=== PATIENT | male | born 1990 | race Caucasian/White ===

== ENCOUNTER 2020-02-18 23:14 | Emergency (ER) | payer OTHER ==
[2020-02-18 23:27] VITALS: BP 131/72; PULSE 115; RESP 16; TEMP 97.9
--- NOTE | 2020-02-19 00:31 | ED ---
Psych HPI - General Chief Complaint: Psychiatric Symptoms Stated Complaint: Mental health Time Seen by Provider: 02/18/20 23:26 Source: patient, police, RN notes reviewed, old records reviewed Mode of arrival: ambulatory - History of Present Illness Initial Comments: This is a 29-year-old male who presents today apical border patient something up or for not taking his medications and making homicidal or suicidal complaints. Patient denies drugs or alcohol today and otherwise emergency department does not feel like he needs to be MD Complaint: suicidal ideation, feels depressed, other (Per pickup order) -: unknown Associated Psychiatric Symptoms: none (Patient himself has no complaints) Context: not taking psychiatric medications Associated Symptoms: denies other symptoms Treatments Prior to Arrival: placed on mental health hold - Related Data Home Medications Medication Instructions Recorded Confirmed ARIPiprazole IM [Abilify Maintena] 200 mg IM QMONTH 06/08/14 02/26/20 Melatonin 3 mg PO HS PRN 10/24/15 02/26/20 Phentermine HCl 37.5 mg PO DAILY 02/26/20 02/26/20 Allergies Allergy/AdvReac Type Severity Reaction Status Date / Time No Known Allergies Allergy Verified 02/26/20 05:49 Review of Systems ROS Statement: Those systems with pertinent positive or pertinent negative responses have been documented in the HPI. ROS Other: All systems not noted in ROS Statement are negative. Past Medical History Past Medical History: Hypertension Additional Past Medical History / Comment(s): OCCASIONAL SOB, OCCASIONAL BLOOD IN STOOL. STATES HAVING STOMACH PAINS. History of Any Multi-Drug Resistant Organisms: None Reported Past Surgical History: No Surgical Hx Reported Additional Past Surgical History / Comment(s): TEETH PULLED Additional Past Anesthesia/Blood Transfusion Reaction / Comment(s): HAS NOT RECEIVED ANESTHESIA Past Psychological History: Anxiety, Bipolar, Depression, Panic Disorder, Schizoaffective Disorder, Schizophrenia Smoking Status: Current every day smoker Past Alcohol Use History: Daily Past Drug Use History: Marijuana - Past Family History Mother Family Medical History: No Reported History General Exam Limitations: no limitations General appearance: alert, in no apparent distress Head exam: Present: atraumatic, normocephalic, normal inspection Eye exam: Present: normal appearance, PERRL, EOMI. Absent: scleral icterus, conjunctival injection, periorbital swelling ENT exam: Present: normal exam, mucous membranes moist Neck exam: Present: normal inspection. Absent: tenderness, meningismus, lymphadenopathy Respiratory exam: Present: normal lung sounds bilaterally. Absent: respiratory distress, wheezes, rales, rhonchi, stridor Cardiovascular Exam: Present: normal rhythm, tachycardia, normal heart sounds. Absent: systolic murmur, diastolic murmur, rubs, gallop, clicks GI/Abdominal exam: Present: soft, normal bowel sounds. Absent: distended, tenderness, guarding, rebound, rigid Extremities exam: Present: normal inspection, full ROM, normal capillary refill. Absent: tenderness, pedal edema, joint swelling, calf tenderness Back exam: Present: normal inspection Neurological exam: Present: alert, oriented X3, CN II-XII intact Psychiatric exam: Present: normal affect, normal mood Skin exam: Present: warm, dry, intact, normal color. Absent: rash Course Vital Signs 02/18/20 23:25 Temperature 97.9 F Pulse Rate 115 H Respiratory 16 Rate Blood Pressure 131/72 O2 Sat by Pulse 100 Oximetry - Reevaluation(s) Reevaluation #1: Medical record is reviewed Patient is clear for medical standpoint for psychiatric evaluation Medical Decision Making - Medical Decision Making 29 male to the ER for evaluation patient is presenting for psychiatric illness patient is not homicidal or suicidal patient can be discharged home - Lab Data Lab Results 02/19/20 Range/Units 00:19 Urine Opiates Screen Not Detected (NotDetected) Ur Oxycodone Screen Not Detected (NotDetected) Urine Methadone Screen Not Detected (NotDetected) Ur Propoxyphene Screen Not Detected (NotDetected) Ur Barbiturates Screen Not Detected (NotDetected) U Tricyclic Antidepress Not Detected (NotDetected) Ur Phencyclidine Scrn Not Detected (NotDetected) Ur Amphetamines Screen Detected H (NotDetected) U Methamphetamines Scrn Not Detected (NotDetected) U Benzodiazepines Scrn Not Detected (NotDetected) Urine Cocaine Screen Not Detected (NotDetected) U Marijuana (THC) Screen Detected H (NotDetected) Disposition Clinical Impression: Chronic schizophrenia Disposition: HOME SELF-CARE Condition: Fair Instructions (If sedation given, give patient instructions): Schizophrenia (ED) Is patient prescribed a controlled substance at d/c from ED?: No Referrals: None,Stated [Primary Care Provider] - 1-2 days
[2020-02-19 00:56] LABS: Amphetamine Screen,Urine Detected (NotDetected); Barbiturate Screen,Urine Not Detected (NotDetected); Benzodiazepines Screen,Urine Not Detected (NotDetected); Cocaine Screen,Urine Not Detected (NotDetected); Methadone Screen, Urine Not Detected (NotDetected); Opiate Screen,Urine Not Detected (NotDetected); Oxycodone Screen, Urine Not Detected (NotDetected); Phencyclidine Screen,Urine Not Detected (NotDetected); Tricyclic Antidepressant,Urine Not Detected (NotDetected)
[2020-02-19 00:57] LABS: Urn Cannabinoid Scrn Detected (NotDetected)
== END 2020-02-19 01:45 | disposition home or self-care (01) ==
LOC: EC 23:14
DX: F20.9 Schizophrenia, unspecified (principal); F17.200 Nicotine dependence, unspecified, uncomplicated; Z79.899 Other long term (current) drug therapy
CPT/HCPCS: 80306; 82075; 99285

== ENCOUNTER 2020-02-25 22:39 | Inpatient (IN) | payer MEDICAID, OTHER ==
--- NOTE | 2020-02-25 23:21 | ED ---
Psych HPI - General Source: patient Mode of arrival: ambulatory <Mega Soto - Last Filed: 02/26/20 00:08> <Izzy More - Last Filed: 02/26/20 07:24> - General Chief Complaint: Psychiatric Symptoms Stated Complaint: Mental Health Time Seen by Provider: 02/25/20 23:06 - History of Present Illness Initial Comments: Patient is a 29-year-old male with history of schizophrenia presenting to emergency Department for psychiatric evaluation. Patient states she was in a verbal altercation with his mother, she'll call the police. Patient states he voluntarily checked himself in today emergency department for psychiatric evaluation. Patient states somebodies accessing his WebCam but doesn't know it is or why. Patient denies any suicidal thoughts or ideations. States he sees at [facility]. States he is currently not on any medication. Has no other complaints. (eMga Soto) - Related Data Home Medications Medication Instructions Recorded Confirmed ARIPiprazole IM [Abilifjosé miguel Maintena] 200 mg IM QMONTH 06/08/14 02/26/20 Melatonin 3 mg PO HS PRN 10/24/15 02/26/20 Phentermine HCl 37.5 mg PO DAILY 02/26/20 02/26/20 Allergies Allergy/AdvReac Type Severity Reaction Status Date / Time No Known Allergies Allergy Verified 02/26/20 05:49 Review of Systems ROS Other: All systems not noted in ROS Statement are negative. <Mega Soto - Last Filed: 02/26/20 00:08> ROS Other: All systems not noted in ROS Statement are negative. <Izzy More P - Last Filed: 02/26/20 07:24> ROS Statement: Those systems with pertinent positive or pertinent negative responses have been documented in the HPI. Past Medical History Past Medical History: Hypertension Additional Past Medical History / Comment(s): OCCASIONAL SOB, OCCASIONAL BLOOD IN STOOL. STATES HAVING STOMACH PAINS. History of Any Multi-Drug Resistant Organisms: None Reported Past Surgical History: No Surgical Hx Reported Additional Past Surgical History / Comment(s): TEETH PULLED Additional Past Anesthesia/Blood Transfusion Reaction / Comment(s): HAS NOT RECEIVED ANESTHESIA Past Psychological History: Anxiety, Bipolar, Depression, Panic Disorder, Schizoaffective Disorder, Schizophrenia Smoking Status: Current every day smoker Past Alcohol Use History: Daily Past Drug Use History: Marijuana - Past Family History Mother Family Medical History: No Reported History <Mega Soto Last Filed: 02/26/20 00:08> General Exam Limitations: no limitations General appearance: alert, in no apparent distress, obese Head exam: Present: atraumatic, normocephalic, normal inspection Eye exam: Present: normal appearance, PERRL, EOMI Pupils: Present: normal accommodation ENT exam: Present: normal exam, normal oropharynx, mucous membranes moist Neck exam: Present: normal inspection, full ROM Respiratory exam: Present: normal lung sounds bilaterally Cardiovascular Exam: Present: regular rate, normal rhythm, normal heart sounds Extremities exam: Present: normal inspection, full ROM Back exam: Present: normal inspection, full ROM Neurological exam: Present: alert, oriented X3 Psychiatric exam: Present: normal affect, normal mood Skin exam: Present: warm, dry, intact, normal color <Mega Soto Last Filed: 02/26/20 00:08> Course Vital Signs 02/25/20 02/25/20 02/26/20 22:57 23:59 04:20 Temperature 98.4 F 97.3 F L Pulse Rate 97 89 78 Pulse Rate [ Left Sitting] Respiratory 20 16 16 Rate Blood Pressure 161/94 136/86 138/72 Blood Pressure [Left Arm Sitting] O2 Sat by Pulse 96 99 Oximetry 02/26/20 02/26/20 05:27 05:33 Temperature 97.8 F 98.5 F Pulse Rate 78 Pulse Rate [ 80 Left Sitting] Respiratory 16 18 Rate Blood Pressure 133/83 Blood Pressure 128/74 [Left Arm Sitting] O2 Sat by Pulse 93 L 98 Oximetry Procedures - Restraint - Face to Face Restraint Occurrence 1 Patient's Immediate Situation: Endangers self safety, Endangers others' safety Patient's Reaction to the Intervention: Aggressive, Combative Patient's Medical & Behavioral Condition: Agitated Need to Continue or Terminate Restraint or Seclusion: Continue Face to Face Eval of Restraint Date: 02/26/20 Face to Face Eval of Restraint Time: 02:47 <Izzy More - Last Filed: 02/26/20 07:24> Medical Decision Making <Mega Soto Last Filed: 02/26/20 00:08> <Izzy More - Last Filed: 02/26/20 07:24> - Medical Decision Making Patient care transferred to Dr. More (Mega Soto) The patient was seen and evaluated by EPS, patient became combative with staff requiring anxiolysis with Benadryl, Haldol and Ativan patient was temporarily ph ysically restrained. Patient was petitioned I did complete a certification concerned that patient is a danger to himself and others due to psychosis and responding to internal stimuli. (Izzy More) - Lab Data Lab Results 02/25/20 02/25/20 Range/Units 23:27 23:27 Urine Color Yellow Urine Appearance Cloudy (Clear) Urine pH 6.0 (5.0-8.0) Ur Specific [place] 1.035 (1.001-1.035) Urine Protein 1+ H (Negative) Urine Glucose (UA) Negative (Negative) Urine Ketones Negative (Negative) Urine Blood Negative (Negative) Urine Nitrite Negative (Negative) Urine Bilirubin Negative (Negative) Urine Urobilinogen 6.0 (<2.0) mg/dL Ur Leukocyte Esterase Negative (Negative) Urine RBC <1 (0-5) /hpf Urine WBC 1 (0-5) /hpf Calcium Oxalate Crystal Rare H (None) /hpf Urine Bacteria Rare H (None) /hpf Urine Mucus Many H (None) /hpf Urine Opiates Screen Not Detected (NotDetected) Ur Oxycodone Screen Not Detected (NotDetected) Urine Methadone Screen Not Detected (NotDetected) Ur Propoxyphene Screen Not Detected (NotDetected) Ur Barbiturates Screen Not Detected (NotDetected) U Tricyclic Antidepress Not Detected (NotDetected) Ur Phencyclidine Scrn Not Detected (NotDetected) Ur Amphetamines Screen Detected H (NotDetected) U Methamphetamines Scrn Not Detected (NotDetected) U Benzodiazepines Scrn Detected H (NotDetected) Urine Cocaine Screen Not Detected (NotDetected) U Marijuana (THC) Screen Detected H (NotDetected) Disposition <Mega Soto - Last Filed: 02/26/20 00:08> Is patient prescribed a controlled substance at d/c from ED?: No <Izzy More P - Last Filed: 02/26/20 07:24> Clinical Impression: Chronic schizophrenia, Hallucination Disposition: TRANSFER TO PSYCH HOSP/UNIT Condition: Stable
[2020-02-26 00:05] LABS: Amphetamine Screen,Urine Detected (NotDetected); Barbiturate Screen,Urine Not Detected (NotDetected); Benzodiazepines Screen,Urine Detected (NotDetected); Cocaine Screen,Urine Not Detected (NotDetected); Methadone Screen, Urine Not Detected (NotDetected); Opiate Screen,Urine Not Detected (NotDetected); Oxycodone Screen, Urine Not Detected (NotDetected); Phencyclidine Screen,Urine Not Detected (NotDetected); Tricyclic Antidepressant,Urine Not Detected (NotDetected); Urn Cannabinoid Scrn Detected (NotDetected)
[2020-02-26] MEDS ORDERED: LORazepam 2 MG/ML INJ IM STA (02:38)
[2020-02-26] MEDS ORDERED: HALOPERIDOL LACTATE 5 MG/ML 1 ML VIAL IM PRN (02:38)
[2020-02-26] MEDS ORDERED: diphenhydrAMINE 50 MG/ML 1 ML VIAL IM STA (02:38)
[2020-02-26] MEDS ORDERED: MAGNESIUM HYDROXIDE 2,400 MG/10 ML CUP PO PRN (03:45)
[2020-02-26] MEDS ORDERED: ACETAMINOPHEN TAB 325 MG TAB PO PRN (03:45)
[2020-02-26] MEDS ORDERED: ZIPRASIDONE 20 MG VIAL IM PRN (03:45)
[2020-02-26] MEDS ORDERED: LORazepam 2 MG/ML INJ IM PRN (03:49)
[2020-02-26 04:14] LABS: Appearance,Urine Cloudy (Clear); Bacteria,Urine Rare /hpf; Bilirubin,Urine Negative (Negative); Blood,Urine Negative (Negative); Calcium Oxalate Crystals,Urine Rare /hpf; Color,Urine Yellow; Glucose,Urine (UA) Negative (Negative); Ketones,Urine Negative (Negative); Leukocyte Esterase,Urine Negative (Negative); Mucus,Urine Many /hpf; Nitrite,Urine Negative (Negative); Protein,Urine 1+ (Negative); RBC,Urine <1 /hpf (0-5); Specific Gravity,Urine 1.035 (1.001-1.035); WBC,Urine 1 /hpf (0-5)
[2020-02-26] MEDS: NICOTINE 14MG/24HR PATCH TRANSDERM SCH ×3 (09:16→12:50)
[2020-02-26 13:11] LABS: Basophils % (A) 1 %; Eosinophils # (A) 0.2 k/uL (0-0.7); Eosinophils % (A) 3 %; HCT 47.8 % (39.0-53.0); HGB 15.6 gm/dL (13.0-17.5); Lymphocytes # (A) 1.9 k/uL (1.0-4.8); Lymphocytes % (A) 33 %; MCH 31.8 pg (25.0-35.0); MCHC 32.6 g/dL (31.0-37.0); MCV 97.7 fL (80.0-100.0); Mean Platelet Volume 7.2; Monocytes # (A) 0.4 k/uL (0-1.0); Monocytes % (A) 8 %; Neutrophils % (A) 53 %; Platelet Count 228 k/uL (150-450); RBC 4.89 m/uL (4.30-5.90); WBC 5.7 k/uL (3.8-10.6)
[2020-02-26 13:18] LABS: ALT 24 U/L (4-49); AST 29 U/L (17-59); African American GFR (CKD) >90 (>60 ml/min/1.73 sqM); Albumin 3.5 g/dL (3.5-5.0); Alkaline Phosphatase 63 U/L (38-126); Anion Gap 6 mmol/L; Bilirubin,Unconjugated 0.7 mg/dL (0.0-1.1); Blood Urea Nitrogen 8 mg/dL (9-20); Calcium 8.9 mg/dL (8.4-10.2); Carbon Dioxide 25 mmol/L (22-30); Chloride 107 mmol/L (98-107); Glucose 86 mg/dL (74-99); Non-African American GFR(CKD) >90 (>60 ml/min/1.73 sqM); Potassium 3.9 mmol/L (3.5-5.1); Sodium 138 mmol/L (137-145); Total Bilirubin 0.7 mg/dL (0.2-1.3); Total Protein 6.2 g/dL (6.3-8.2)
[2020-02-26 13:57] LABS: Cholesterol 127 mg/dL (<200); HDL Cholesterol 30 mg/dL (40-60); LDL Cholesterol,Calculated 80 mg/dL (0-99); Triglycerides 83 mg/dL (<150)
--- NOTE | 2020-02-26 17:18 | P.HP ---
Psychiatric H&P - . H&P Date: 02/26/20 History & Physical: IDENTIFYING DATA: He is a 23-year-old single male who has a history of a schizophrenia. HISTORY OF PRESENT ILLNESS: The police brought him to the ED. According to record his mother called the police following a verbal altercation. According to mother this week the police and found evidence no carotid the patient was housing carbon dioxide. He quit taking the bills Abilify maintaining a in November 2019 and has been "experimenting" with "mushrooms and marijuana" to control his schizophrenia. He was sleeping during most of the day. I was able to wake him up for interview in the early afternoon. He was extremely malodorous. He was unable to explain the reason for this hospitalization. He mumbled something about his mother. His thinking was so disorganized and was unable to get coherent responses to questions about psychotic symptoms. PAST PSYCHIATRIC HISTORY: This is his third psychiatric hospitalization. He was last discharged from this unit in May 2014 with a diagnosis of paranoid schizophrenia. PAST MEDICAL HISTORY: He has no reported history of major medical problems. ALLERGIES: No drug ALLERGIES SUBSTANCE USE HISTORY: He would not talk about his substance use or substance use history. The records indicate recent use of hallucinogenic mushrooms and marijuana. His UDS was positive for amphetamine, benzodiazepines and marijuana. A MAPS research was negative. FAMILY PSYCHIATRIC/SUBSTANCE USE HISTORY: Unknown LEGAL HISTORY: He denied that he has pending charges SOCIAL HISTORY: He is single and has no children. He lives with his mother. He has no income. MENTAL STATUS EXAM: He presented as a disheveled and malodorous moderately obese 29-year-old male who was minimally cooperative with the interview. He was guarded and suspicious. He had a distressed facial expression. He was alert alert and oriented to person and place. He had psychomotor retardation but no abnormal movements. Her speech was not spontaneous, garbled and difficult to understand. His affect was flat. He did not express suicidal ideation, wishes or homicidal ideation. He appeared paranoid but did not express clear paranoid ideation or delusions. His thinking was concrete and not organized. He did not appear to be responding to internal stimuli. STRENGTHS: Or the family, good physical health WEAKNESSES:, And severe mental illness, substance use problems, poor compliance with psychiatric treatment IMPRESSION: Is a 29-year-old male who has a history of a schizophrenia. He presented to psychiatric unit involuntarily in a confused, discord organized and paranoid state. He is extremely poor personal hygiene. He should be treated inpatient basis with combination of psychopharmacology and multimodal therapy. PRINCIPLE DIAGNOSIS: Schizophrenia, cannabis use disorder, hallucinogen use disorder, rule out amphetamine use disorder, poor compliance with treatment RECOMMENDATION: Admitted to the psychiatric unit. Safety precautions. Proceed with involuntary hospitalization. Restart Abilify 15 mg daily and transition to Abilify Maintenna. Consult medicine for initial physical exam and medical history. 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 Encourage participation in therapeutic groups and activities. Evaluate clinical status response to treatment daily basis. Allergies Allergy/AdvReac Type Severity Reaction Status Date / Time No Known Allergies Allergy Verified 02/26/20 05:49 Vital Signs Temp 96.0 F L 02/26/20 12:51 Pulse 78 02/26/20 05:33 Resp 18 02/26/20 05:33 BP 133/83 02/26/20 05:33 Pulse Ox 98 02/26/20 05:33 Intake & Output 02/25/20 02/26/20 02/26/20 18:59 06:59 18:59 Weight 136.078 kg Laboratory Last Values WBC 5.7 k/uL (3.8-10.6) 02/26/20 12:33 RBC 4.89 m/uL (4.30-5.90) 02/26/20 12:33 Hgb 15.6 gm/dL (13.0-17.5) 02/26/20 12:33 Hct 47.8 % (39.0-53.0) 02/26/20 12:33 MCV 97.7 fL (80.0-100.0) 02/26/20 12:33 MCH 31.8 pg (25.0-35.0) 02/26/20 12:33 MCHC 32.6 g/dL (31.0-37.0) 02/26/20 12:33 RDW 12.0 % (11.5-15.5) 02/26/20 12:33 Plt Count 228 k/uL (150-450) 02/26/20 12:33 Neutrophils % 53 % 02/26/20 12:33 Lymphocytes % 33 % 02/26/20 12:33 Monocytes % 8 % 02/26/20 12:33 Eosinophils % 3 % 02/26/20 12:33 Basophils % 1 % 02/26/20 12:33 Neutrophils # 3.0 k/uL (1.3-7.7) 02/26/20 12:33 Lymphocytes # 1.9 k/uL (1.0-4.8) 02/26/20 12:33 Monocytes # 0.4 k/uL (0-1.0) 02/26/20 12:33 Eosinophils # 0.2 k/uL (0-0.7) 02/26/20 12:33 Basophils # 0.0 k/uL (0-0.2) 02/26/20 12:33 Sodium 138 mmol/L (137-145) 02/26/20 12:33 Potassium 3.9 mmol/L (3.5-5.1) 02/26/20 12:33 Chloride 107 mmol/L (98-107) 02/26/20 12:33 Carbon Dioxide 25 mmol/L (22-30) 02/26/20 12:33 Anion Gap 6 mmol/L 02/26/20 12:33 BUN 8 mg/dL (9-20) L 02/26/20 12:33 Creatinine 0.74 mg/dL (0.66-1.25) 02/26/20 12:33 Est GFR (CKD-EPI)AfAm >90 (>60 ml/min/1.73 sqM) 02/26/20 12:33 Est GFR (CKD-EPI)NonAf >90 (>60 ml/min/1.73 sqM) 02/26/20 12:33 Glucose 86 mg/dL (74-99) 02/26/20 12:33 Calcium 8.9 mg/dL (8.4-10.2) 02/26/20 12:33 Total Bilirubin 0.7 mg/dL (0.2-1.3) 02/26/20 12:33 Conjugated Bilirubin 0.0 mg/dL (0.0-0.3) 02/26/20 12:33 Unconjugated Bilirubin 0.7 mg/dL (0.0-1.1) 02/26/20 12:33 Delta Bilirubin 0.0 mg/dL (0.0-0.2) 02/26/20 12:33 AST 29 U/L (17-59) 02/26/20 12:33 ALT 24 U/L (4-49) 02/26/20 12:33 Alkaline Phosphatase 63 U/L (38-126) 02/26/20 12:33 Total Protein 6.2 g/dL (6.3-8.2) L 02/26/20 12:33 Albumin 3.5 g/dL (3.5-5.0) 02/26/20 12:33 TSH 0.895 mIU/L (0.465-4.680) 02/26/20 12:33 Urine Color Yellow 02/25/20 23:27 Urine Appearance Cloudy (Clear) 02/25/20 23: Urine pH 6.0 (5.0-8.0) 02/25/20 23: Ur Specific [place] 1.035 (1.001-1.035) 02/25/20 23:27 Urine Protein 1+ (Negative) H 02/25/20 23:27 Urine Glucose (UA) Negative (Negative) 02/25/20 23:27 Urine Ketones Negative (Negative) 02/25/20 23:27 Urine Blood Negative (Negative) 02/25/20 23: Urine Nitrite Negative (Negative) 02/25/20 23: Urine Bilirubin Negative (Negative) 02/25/20 23: Urine Urobilinogen 6.0 mg/dL (<2.0) 02/25/20 23:27 Ur Leukocyte Esterase Negative (Negative) 02/25/20 23:27 Urine RBC <1 /hpf (0-5) 02/25/20 23:27 Urine WBC 1 /hpf (0-5) 02/25/20 23:27 Calcium Oxalate Crystal Rare /hpf (None) H 02/25/20 23:27 Urine Bacteria Rare /hpf (None) H 02/25/20 23:27 Urine Mucus Many /hpf (None) H 02/25/20 23:27 Urine Opiates Screen Not Detected (NotDetected) 02/25/20 23:27 Ur Oxycodone Screen Not Detected (NotDetected) 02/25/20 23:27 Urine Methadone Screen Not Detected (NotDetected) 02/25/20 23:27 Ur Propoxyphene Screen Not Detected (NotDetected) 02/25/20 23:27 Ur Barbiturates Screen Not Detected (NotDetected) 02/25/20 23:27 U Tricyclic Antidepress Not Detected (NotDetected) 02/25/20 23:27 Ur Phencyclidine Scrn Not Detected (NotDetected) 02/25/20 23:27 Ur Amphetamines Screen Detected (NotDetected) H 02/25/20 23:27 U Methamphetamines Scrn Not Detected (NotDetected) 02/25/20 23:27 U Benzodiazepines Scrn Detected (NotDetected) H 02/25/20 23:27 Urine Cocaine Screen Not Detected (NotDetected) 02/25/20 23:27 U Marijuana (THC) Screen Detected (NotDetected) H 02/25/20 23:27 02/26/20 13:56 02/26/20 17:17
[2020-02-26 20:09] LABS: Hemoglobin A1C 4.9 % (4.0-6.0)
--- NOTE | 2020-02-26 20:25 | XR ---
EXAMINATION TYPE: XR chest 1V portable DATE OF EXAM: 02/26/2020 COMPARISON: NONE HISTORY: Short of breath TECHNIQUE: FINDINGS: Heart and mediastinum are normal. Lungs are clear of consolidation. There is very slight in creased interstitial pulmonary markings. There is no pleural effusion. IMPRESSION: Slight increased interstitial markings. No pleural fluid or cardiomegaly seen to suggest heart failure.
--- NOTE | 2020-02-26 21:05 | CONS ---
CONSULTATION DATE OF SERVICE: 02/26/2020 REASON FOR CONSULTATION: Advice regarding history of blood in stools and stomach pain. HISTORY OF PRESENT ILLNESS: This 29-year-old gentleman with a past anxiety, bipolar depression, panic disorder, schizoaffective disorder, also had complaints of occasional shortness of breath, blood in the stools. The patient has significant psychiatric symptoms at this time. Patient unable to give a coherent history. The patient also has noted some minimal bilateral leg edema. The patient is obese with a BMI of 43.9 and weighing about 136 kg. There is no history of chest pain. No history of palpitations. No headache, loss of conscious or seizure at this time. PAST MEDICAL HISTORY: History of anxiety, bipolar depression, panic disorder. Other symptoms as listed above. HOME MEDICATIONS: 1. Phentermine 37.5 mg p.o. daily. 2. Melatonin 3 mg q.h.s. 3. Abilify 200 mg q. monthly. ALLERGIES: None. FAMILY HISTORY: No history of heart disease or strokes in the family. SOCIAL HISTORY: History of smoking, THC, alcohol occasional. REVIEW OF SYSTEMS: ENT No history of diminished hearing or vision. CARDIOVASCULAR No angina or palpitations. RESPIRATORY As mentioned earlier. GI No nausea, vomiting, or diarrhea. No dysuria or hematuria. NERVOUS No numbness or weakness. ALLERGY/IMMUNOLOGY No asthma or hayfever. MUSCULOSKELETAL As mentioned earlier. HEMATOLOGY/ONCOLOGY Anemia. ENDOCRINE No history of diabetes or hypothyroidism. CONSTITUTIONAL As mentioned earlier. DERMATOLOGY Negative. RHEUMATOLOGY Negative, PSYCHIATRY As mentioned earlier. PHYSICAL EXAMINATION: Alert and oriented x2, pulse 78, blood pressure 120/75, respiration 16, temperature 97.8, pulse ox 92% on room air. HEENT: Conjunctivae normal. Oral mucosa moist. NECK: No jugular venous distention. No lymph node enlargement. CARDIOVASCULAR: S1, S2. RESPIRATORY: Diminished breath sounds at the bases. A few scattered rhonchi and crackles. ABDOMEN: Soft, obese, nontender. LEGS: No edema, no swelling. NERVOUS SYSTEM: Higher functions mentioned earlier. Moves all four limbs. No focal deficits. LYMPHATICS: No lymph node in neck or axilla. SKIN: No rash. JOINTS: No active deforming arthropathy. LABS: WBC 5.7, hemoglobin 15.3, and total protein 6.2. ASSESSMENT: 1. Schizophrenia hallucination. 2. Minimal bilateral leg edema. 3. History of hypertension. 4. History of anxiety, bipolar depression, panic disorder. 5. History of nicotine dependence. 6. History of blood in the stools. RECOMMENDATIONS AND DISCUSSION: In this 29-year-old gentleman who presented with multiple medical issues, at this time I recommend to continue the current medications. The patient appears to be medically stable at this time. I would recommend a chest x-ray and basic labs to complete the workup. The patient also may be asked to follow up with primary physician closely in the outpatient setting. The hemoglobin is normal at 15.6. The patient could be followed up outpatient for further evaluation if stable above-mentioned symptoms persist, otherwise further recommendations per psych. Thank you, for letting us participate in the care of this patient. ANTOINETTE / TJ: [id number] / ZEYAD
[2020-02-26] MEDS: LORazepam 1 MG TAB PO PRN (22:44)
[2020-02-27] MEDS: NICOTINE 14MG/24HR PATCH TRANSDERM SCH (10:06)
[2020-02-27] MEDS: LORazepam 1 MG TAB PO PRN ×2 (10:07→21:19)
--- NOTE | 2020-02-27 10:09 | P.PN ---
Progress Note - Text Progress Note Date: 02/27/20 Clinical Problems: Schizophrenia, cannabis use disorder, hallucinogen use disorder, rule out amphetamine use disorder, poor compliance with treatment Interim history: Due to medical record review the patient. He denied concerns other than wanting to be discharged. He appeared to be under the impression that this admission was voluntary and he can leave whenever he wishes. I explained the involuntary process. Medical consult appreciated. Chest x-ray showed slight increased interstitial m arkings. He slept 6 hours last night. He has not attended therapeutic groups and activities. Mental status exam: Appendectomy presented as a disheveled appearing 29-year-old male who was pleasant on approach. He made eye contact and appeared to attend to interview. He was less malodorous than yesterday. He had a distressed facial expression. He showed psychomotor retardation but no abnormal movements. Speech was spontaneous, and difficult to understand. His affect was blunted but stable and appropriate. I could not understand his responses to questions about suicidality, homicidality or his responses to questions about psychotic symptoms. He would mumble answers. His thinking appeared incoherent and illogical. He did not appear to be responding to internal stimuli. Assessment: He appears less sedated and withdrawn than yesterday. His hygiene has improved somewhat. His thinking and speech remained disorganized and difficult to understand. Plan: Continue psychiatric hospitalizations. Safety precautions. Proceed with involuntary hospitalization. Begin oral Abilify 15 mg daily. Encourage participation in therapeutic groups and activities. Evaluate clinical status and response to treatment daily basis.
--- NOTE | 2020-02-28 09:24 | P.PN ---
Progress Note - Text Interval history: The patient is found in the hallway he follows me to an interview room. He was admitted over the weekend by Dr. Zepeda. The petition and clinical certificate were reviewed as well as the clinical notes. The patient is known to me from prior admissions. He does have a history of schizophrenia. The patient states that he stopped his medicine on his birthday which was in [birth year]. He discontinue the Abilify. Since then he has been using amphetamines and using mushrooms. He states that mushrooms is the treatment for his mental illness. He states he does not intend on taking the medication. He spontaneously describes a variety of delusions that are paranoid and persecutory in nature. He believes the [employer] is following his web address. He endorses auditory hallucinations as an internal dialogue. Mental status exam: The patient is an obese male he is prematurely balding he has long hair on the sides which is graying he is wearing a freeman. His clothes are oversize and are in poor condition. Eye contact is appropriate. Speech is fluent spontaneous nonpressured. Affect is originally constricted to blunted but he does show signs of agitation when talking about not wanting to use the Abilify or any other psychotropic. He is reporting no suicidal or homicidal thoughts. Insight and judgment are poor. He lacks appreciation for the severity of his psychosis at this time. Self-care appears to be poor. Plan: The patient will be prescribed the Abilify is written. We discussed the court process his questions were answered. He requires continued psychiatric hospitalization due to the dysfunction that his symptoms of psychosis are causing. Vital signs reviewed.
[2020-02-28] MEDS: NICOTINE 14MG/24HR PATCH TRANSDERM SCH (09:28)
[2020-02-28] MEDS: ARIPiprazole 15 MG TAB PO SCH (09:28)
[2020-02-28] MEDS: LORazepam 1 MG TAB PO PRN ×2 (09:53→20:04)
[2020-02-29] MEDS: NICOTINE 14MG/24HR PATCH TRANSDERM SCH (08:16)
[2020-02-29] MEDS: ARIPiprazole 15 MG TAB PO SCH (08:16)
--- NOTE | 2020-02-29 11:15 | P.PN ---
Progress Note - Text Interval history: The patient is found in his room he follows me to an interview room. He indicates he feels distressed. He would like to be released from the hospital he feels that the hospitalization is unnecessary. It appears that he did comply with the Abilify yesterday and today. We discussed a deferral conference. As I try to explain the process he interrupts numerous times which makes it challenging. He states he can't stand the sound of his own voice. He states when he leaves he will join the . He has been avoiding groups but is been walking in the hallways instead. Appetite stable he reports he slept throughout the whole night staff report that he slept 4 hours and was restless. Mental status exam: The patient is a obese male appearing older than his stated age she is dressed in oversize clothing. Eye contact is intermittent. He appears frustrated irritable at times. He spontaneously d escribes disorganized delusional thoughts. He is reporting no thoughts of harming others he states if he stays here too long he will have suicidal thoughts. Insight and judgment are impaired. He demonstrates no verbal or physical aggressiveness today demonstrates no involuntary repetitive movements. He speaks very quietly often times I have to ask him to repeat himself. Plan: The patient remains acutely psychotic he requires continued psychiatric hospitalization due to his current dysfunction. Continue Abilify as written. We will consider titrating the dose if needed. We are awaiting his deferral conference. Vital signs reviewed. He is encouraged to participate in the milieu.
[2020-02-29] MEDS: LORazepam 1 MG TAB PO PRN ×2 (11:43→20:16)
[2020-03-01] MEDS: NICOTINE 14MG/24HR PATCH TRANSDERM SCH (09:17)
[2020-03-01] MEDS: LORazepam 1 MG TAB PO PRN ×2 (09:17→19:15)
[2020-03-01] MEDS: ARIPiprazole 15 MG TAB PO SCH (09:17)
--- NOTE | 2020-03-01 10:55 | P.PN ---
Progress Note - Text Interval history: The patient is found in the hallway he follows me to an interview room. He reports that his mood is "not too terrible". He continues to express delusional thought spontaneously. He states it is his intention to join the specifically the loan operations specialist unit upon discharge. He states that he would like to take his mother's van and drive across the country to experience life. He expresses sadness that his whole life amounts to a television two guinea pigs and some tobacco. He has been complying with the Abilify he has no questions about the medication he continues to feel that is unnecessary but he is taking it to facilitate a discharge. We discussed the use of Abilify maintena again. He is upset with this suggestion. He has is deferral conference today. He was informed that the Abilify maintena should be part of his treatment plan and he should consider that before signing a deferral agreement. Mental status exam: The patient is a morbidly obese male appearing older than his stated age. He has the same clothing on which is dirty an oversized. Eye contact is intermittent. He speaks very quietly often and has to be directed to speak louder so that he can be heard. He endorses grandiose thoughts as noted above. He reports persecutory thoughts. He states that he knows telekinesis exists even if I don't believe it. He demonstrates no verbal or physical aggressiveness but his affect does become more irritable and agitated when discussing the antipsychotic medication. Insight and judgment remain impaired. He demonstrates no involuntary repetitive movements. He is reporting no thoughts of hurting himself or anyone else specifically he reports no thoughts of hurting his mother. Plan: The patient will continue on the Abilify we will titrate the oral dose to 20 mg daily. We will plan to utilize the Abilify maintena prior to discharge. He has is deferral conference today we will await that result. Vital signs reviewed. We will monitor him for safety he is encouraged to participate in the milieu although he has been abstaining from groups for the most part.
[2020-03-02] MEDS ORDERED: LORazepam 1 MG TAB ONE (04:00)
[2020-03-02] MEDS: NICOTINE 14MG/24HR PATCH TRANSDERM SCH (08:18)
[2020-03-02] MEDS: LORazepam 1 MG TAB PO PRN ×3 (09:56→20:58)
--- NOTE | 2020-03-02 10:57 | P.PN ---
Progress Note - Text Interval history: The patient is found in the hallway he follows me to an interview room. He states that his mood is frustrated due to disturbances on the mental health unit. He reports he slept throughout the night staff reported he slept 4 hours. Appetite is stable. The patient's mother indicates that the patient still appears acutely psychotic to her. The patient does still spontaneously describe paranoid and persecutory delusions as well as some grandiose thoughts. He has not been attending groups as he feels uncomfortable around others. He has been complying with the Abilify. Mental status exam: The patient is a morbidly obese male hygiene grooming impaired eye contact intermittent. He speaks softly again I have to ask him to repeat himself several times. He describes paranoid persecutory and grandiose delusions spontaneously throughout the session. He voices unrealistic goals such as joining the once discharged or driving across country once discharged. Insight and judgment impaired. He is reporting no suicidal or homicidal thoughts. He demonstrates no verbal or physical aggressiveness during the session he demonstrates no involuntary repetitive movements. He remains oriented to person place and date. At times he demonstrates irritability but in a mild to moderate form. Plan: The patient will continue on medication as written we will consider titrating the dose. Once we feel that the Abilify is providing efficacy we'll transition him to the Abilify [facility]. At this time he remains acutely psychotic which is causing psychosocial dysfunction and therefore he requires continued psychiatric hospitalization. Vital signs reviewed. He is encouraged to participate in the milieu.
[2020-03-02] MEDS: MAG HYDROX/AL HYDROX/SIMETH 30 ML CUP PO PRN (18:29)
[2020-03-03] MEDS: NICOTINE 14MG/24HR PATCH TRANSDERM SCH (06:48)
--- NOTE | 2020-03-03 09:40 | P.PN ---
Progress Note - Text Interval history: The patient is found in the hallway follows me to an interview room. The patient indicates that he is "not too terrible". He indicates having difficulty sleeping at night staff reported he slept 6 hours, he reports appetite is stable. He indicates that other patients are very frustrating and he is getting worse here. He states he wants to go home. He continues to assert that he did not need psychiatric admission nor does he need medication but he is willing to comply to get out of the hospital. He asks if he can receive the Abilify maintena injection today as he feels that might expedite his release area we discussed that we would like to see some of his nonobjective thinking reduce and his function improve. He spontaneously continues to describe symptoms of psychosis. Indicates he hears voices all day long. He states many of them he enjoys as they are supportive or funny. He states there are bad voices but he is guarded in describing what is said. He is reporting no command auditory hallucinations. He continues to speak of telekinesis he states he needs to protect his thoughts so people don't steal them and he can receive royalties for thoughts that could generate income. Mental status exam: The patient is a morbidly obese male appearing older than his stated age. He is dressed in the same clothing which is oversized grooming is impaired hygiene fair. Eye contact appropriate he maintains initially constricted affect becomes more irritable during the session. The session was terminated with him leaving abruptly out of anger. He reports auditory hallucinations as noted he reports continued grandiose and persecutory thoughts. He demonstrates no aggressiveness. He is irritable however. He is reporting no suicidal or homicidal thoughts. Insight and judgment remain impaired. He is oriented to person place and date. Plan: The patient will continue on his current psychotropic medication we will initiate Abilify maintena today 400 mg. We will consider titrating the oral dose further. The patient does have a history of psychosis at baseline but we need to see a further reduction in the severity of the psychosis prior to discharge. We will stay in contact with his mother who has been providing collateral information. Vital signs reviewed. He is encouraged to participate in the milieu although he tends to isolate.
[2020-03-03] MEDS ORDERED: ARIPiprazole IM SYRINGE 400 MG (NO CHARGE) IM ONE (10:00)
[2020-03-03] MEDS: LORazepam 1 MG TAB PO PRN ×2 (10:47→20:23)
[2020-03-03 14:08] VITALS: BMI 45.8
[2020-03-03] MEDS: MAG HYDROX/AL HYDROX/SIMETH 30 ML CUP PO PRN (20:35)
[2020-03-04] MEDS: LORazepam 1 MG TAB PO PRN ×3 (03:50→21:27)
[2020-03-04] MEDS: NICOTINE 14MG/24HR PATCH TRANSDERM SCH (08:39)
--- NOTE | 2020-03-04 10:42 | P.PN ---
Progress Note - Text Progress Note Date: 03/04/20 Interval history: Patient was seen wandering the hallways and was directable and agreeable to s peak with bid writer. Patient appeared to have poor hygiene and grooming however was attempting to be polite during the interview. He spoke about his medications and claims that he is taking the Abilify and I asked why he is getting a shot and also taking the by mouth medications. He states that he did not sleep well last night due to the noise in the hallway and the nurses checking on him. He states that he has chronic auditory hallucinations and "talks to everybody" however states that the voices are non-distressing to him. Patient was asking what discharge. At this time patient denies any suicidal or homicidal ideations intent or plan. Denies any visual hallucinations. Patient denies any side effects from the medications and has been compliant with meds. Mental status exam: General Appearance: Patient appears to be overweight, stated age is alert, directable, and cooperative. Poor hygiene and grooming. Behavior: No agitated behavior. Patient is calm and directable Speech: Patient's speech is fluent and nonpressured. Mood/Affect: Mood is improving mildly, affect is congruent and constricted. Suicidality/Homicidality: Patient denies having any suicidal or homicidal ideation intent or plan. Perceptions: Patient denies any visual hallucinations. Stable auditory hallucinations, non-distressing. Though content/process: There is no evidence of any delusional thought content and thought process is linear and goal-directed. Memory and concentration: AOX3, grossly intact for the purposes of this session Judgment and insight: improving mildly Assessment/Plan: Continue with current diagnosis. Patient continues to meet criteria for inpatient psychiatric admission for symptom stabilization and safety.Patient will be maintained on current psychotropic medication regimen. Monitor for medication compliance and for any psychotropic medication side effects. Will continue to monitor ongoing response to treatment. Encouraged participation in milieu.
[2020-03-05] MEDS: NICOTINE 14MG/24HR PATCH TRANSDERM SCH (08:43)
--- NOTE | 2020-03-05 09:49 | P.PN ---
Progress Note - Text Progress Note Date: 03/05/20 Interval history: Patient was seen wandering the hallways near the nurse's desk and was directable and agreeable to speak with account underwriter. Patient continues to appeared to have poor hygiene and grooming. Patient was appropriate for the most part during the interview. He states that he has been taking his medications and denies any problems with the meds at this time. He states that he has been going to some groups and try to participate. Patient claims that his mood has been "okay" and denied any anxiety today. He states that he did have difficulty time getting to sleep last night due to noises. He states that he has chronic auditory hallucinations which are non-distressing to him. At this time patient denies any suicidal or homicidal ideations intent or plan. Denies any visual hallucinations. Patient denies any side effects from the medications and has been compliant with meds. Mental status exam: General Appearance: Patient appears to be overweight, stated age is alert, directable, and cooperative. Poor hygiene and grooming. Behavior: No agitated behavior. Patient is calm and directable Speech: Patient's speech is fluent and nonpressured. Mood/Affect: Mood is improving mildly, affect is congruent and constricted. Suicidality/Homicidality: Patient denies having any suicidal or homicidal ideation intent or plan. Perceptions: Patient denies any visual hallucinations. Stable auditory hallucinations, non-distressing. Though content/process: There is no evidence of any delusional thought content and thought process is linear and goal-directed. Memory and concentration: AOX3, grossly intact for the purposes of this session Judgment and insight: improving mildly Assessment/Plan: Continue with current diagnosis. Patient continues to meet criteria for inpatient psychiatric admission for symptom stabilization and safety.Patient will be maintained on current psychotropic medication regimen. Monitor for medication compliance and for any psychotropic medication side effects. Will continue to monitor ongoing response to treatment. Encouraged participation in milieu.
[2020-03-05] MEDS: LORazepam 1 MG TAB PO PRN ×2 (11:32→20:08)
[2020-03-06] MEDS: NICOTINE 14MG/24HR PATCH TRANSDERM SCH (08:33)
--- NOTE | 2020-03-06 10:52 | P.PN ---
Progress Note - Text Interval history: The patient's found in the hallway he follows me to an interview room. He states his mood is "not too terrible". He indicates he's been speaking with his mother via phone throughout the weekend. He indicates those conversations have been going well. Social work will contact his mother again today. We reviewed his psychotropic medications the patient had no questions or concerns. He actually has begun attending groups during the weekend. Mental status exam: The patient is a morbidly obese male appearing older than his stated age. He has shaved. Eye contact is appropriate speech is fluent and spontaneous nonpressured. Affect is brighter he is more interactive in the conversation. He attempts to use humor during the conversation. He is reporting no suicidal or homicidal thoughts. He demonstrated no irritability today. He does continue to have delusional thinking that is paranoid nature but he does not spontaneously report any today. He demonstrates no verbal or physical aggressiveness is demonstrating no involuntary repetitive movements. Insight and judgment chronically impaired due to his diagnosis. Plan: The patient will continue on his current psychotropic medication we will monitor him for safety social work will speak with his mother today to see if he is approximating his baseline function. He is encouraged to fully participate in the milieu we will monitor him for safety. Vital signs reviewed. He requires continued psychiatric hospitalization until sufficiently stabilized.
[2020-03-06] MEDS: LORazepam 1 MG TAB PO PRN ×2 (13:25→20:57)
[2020-03-06] MEDS: MAG HYDROX/AL HYDROX/SIMETH 30 ML CUP PO PRN (15:38)
[2020-03-07] MEDS: NICOTINE 14MG/24HR PATCH TRANSDERM SCH (08:21)
--- NOTE | 2020-03-07 11:39 | P.PN ---
Progress Note - Text Interval history: The patient's found in the hallway he follows me to an interview room. He reports that his mood is better. He states he attended 1 group yesterday appetite is stable he indicates he sleeping. Social work notes were reviewed. Staff feel that the patient's affect has brightened and he is more interactive. He continues to appropriately try to use humor in front of others. We reviewed his psychotropic medication he has no questions or concerns. Mental status exam: The patient is a morbidly obese male he is dressed in his own clothing hygiene grooming fair. Eye contact is appropriate speech is fluent he is more engaged in conversations affect is brighter. He is reporting no suicidal or homicidal ideation intent or plan. He is reporting no visual hallucinations he does continue to experience auditory hallucinations but he states none that are derogatory and he is reporting no command auditory hallucinations. He demonstrates no verbal or physical aggressiveness he is demonstrating no involuntary repetitive movements. Insight and judgment improving although those are chronically impaired by his chronic mental illness. Plan: The patient will continue on his current psychotropic medication. We will consider discharging him the next 1-2 days. He does appear to be slowly stabilizing he appears to be approximating his known baseline function. Vital signs reviewed.
[2020-03-07] MEDS: LORazepam 1 MG TAB PO PRN ×2 (12:01→19:24)
[2020-03-08 06:44] VITALS: RESP 16
[2020-03-08] MEDS: NICOTINE 14MG/24HR PATCH TRANSDERM SCH (08:07)
--- NOTE | 2020-03-08 09:10 | P.DS ---
Providers Date of admission: 02/26/20 02:37 Expected date of discharge: 03/08/20 Attending physician: Kevin Minaya Consults: 02/26/20 03:45 Consult Physician Routine Consulting Provider: Lester Eason Consult Reason/Comments: For H & P for Medical Follow Up Do you want consulting provider notified?: Yes, Notify in am Primary care physician: Stated None - Discharge Diagnosis(es) (1) Schizophrenia Current Visit: No Status: Acute Priority: High (2) Cannabis use disorder, moderate, dependence Current Visit: Yes Status: Acute Priority: Medium (3) Hallucinogenic mushrooms use disorder, moderate Current Visit: Yes Status: Acute Priority: Medium (4) Amphetamine use disorder, mild Current Visit: Yes Status: Acute Priority: Low Hospital Course: Brief summary of admission note: This patient is a 29-year-old single male with a history of schizophrenia who was admitted to the mental health unit through the emergency room for acute symptoms of psychosis. The patient's mother had called the police following a verbal altercation they were engaged in. Reportedly he had quit taking his Abilify back in November and had been using marijuana and mushrooms and other substances. The patient percent with poor hygiene grooming thoughts were disorganized. For full details please refer to the psychiatric evaluation dictated by Dr. Zepeda on 02/26/2020. Summary of hospital course: The patient was admitted to the mental health unit involuntarily. A second clinical certificate was completed. The patient participated in a deferral conference and he decided to defer a full court hearing. Initially he did not wish to restart the Abilify but soon into the admission he changed his mind and began complying with the medication. The oral dose was titrated to 20 mg daily. We discussed that the Abilify maintena would need to be part of his treatment plan. Abilify maintena 400 mg IM was given on 03/03/2020. The patient was seen by internal medicine for routine history and physical exam. Social work met with the patient to complete a psychosocial assessment for discharge planning purposes. Social work did speak with the patient's mother several times during the admission to discuss the patient's progress and discharge planning. The patient selectively attended few groups. He often was ambulating in the hallway. He demonstrated no behavioral disturbances. During the hospitalization his symptoms did improve. His irritability has subsided his affect has become brighter and he is appropriately using humor. He reports that the auditory hallucinations are quieter he left spontaneously speaks of his paranoid persecutory thoughts. From previous admissions he has demonstrated that he does have psychosis at baseline but when he improves his overall function is better. He is attending to his ADLs more appropriately. Mental status exam: The patient is a morbidly obese male he is dressed in the same clothing hygiene grooming adequate. Eye contact is appropriate speech is fluent and spontaneous nonpressured. He is demonstrating no tangential thinking loose associations or flight of ideas. He makes attempts at using humor appropriately. He is reporting his mood is good he is reporting no hopelessness thinking no suicidal ideation intent or plan. He is reporting no homicidal ideation intent or plan. At no time did he make any statements of wanting to hurt his mother. He is reporting ongoing auditory hallucinations that he finds supportive. He is reporting no derogatory hallucinations at this time he is reporting no command auditory hallucinations at this time. He demonstrates no verbal or physical aggressiveness is demonstrating no involuntary repetitive movements. Insight and judgment are chronically impacted by his schizophrenia but overall they are improved compared to when he was admitted to the mental health unit. He remains alert he is oriented to person place and date. Affect is brighter as noted above. Impressions 1. Schizophrenia, cannabis use disorder moderate, hallucinogen use disorder moderate, amphetamine use disorder mild Plan: The patient will be discharged mental health unit today he will return residing with his mother. He will follow up with [facility] for outpatient psychiatric services. He is on a deferral agreement and we discussed the consequences of him not adhering to that commitment he will continue on Abilify 20 mg daily for another 9 days than the oral medication will be discontinued. Again he received the Abilify maintena 400 mg IM on 03/03/2020. His next Abilify maintena 400 mg will be due 03/31/2020. He is instructed to abstain from any use of alcohol marijuana or any illicit drugs. We discussed that this is a condition of his deferral agreement as well. He does not wish to participate in inpatient chemical dependency treatment. He does not wish to take any medication specifically for substance use. At this time there is no imminent safety risk is appropriate for transition to outpatient care. He is instructed to return to the hospital with any acute safety concerns. Patient Condition at Discharge: Stable Plan - Discharge Summary New Discharge Prescriptions: New ARIPiprazole [Abilify] 20 mg PO DAILY #30 tab ARIPiprazole IM [Abilify Maintena] 400 mg IM ONCE #1 each Nicotine 14Mg/24Hr Patch [Habitrol] 1 patch TRANSDERM DAILY #14 patch Continue Melatonin 3 mg PO HS PRN PRN Reason: Insomnia Discontinued ARIPiprazole IM [Abilify Maintena] 200 mg IM QMONTH Phentermine HCl 37.5 mg PO DAILY Discharge Medication List Melatonin 3 mg PO HS PRN 10/24/15 [History] ARIPiprazole IM [Abilify Maintena] 400 mg IM ONCE #1 each 03/08/20 [Rx] ARIPiprazole [Abilify] 20 mg PO DAILY #30 tab 03/08/20 [Rx] Nicotine 14Mg/24Hr Patch [Habitrol] 1 patch TRANSDERM DAILY #14 patch 03/08/20 [Rx] Follow up Appointment(s)/Referral(s): [facility] [Outside] - 03/10/20 2:00 pm (03-10-20 @ 2:00 with Alexi Gil by phone. 03-17-20 @ 1:30 with NOMI Hernandez face to face at [facility] office) None,Stated [Primary Care Provider] - 1-2 days Activity/Diet/Wound Care/Special Instructions: Activity and diet as tolerated. Avoid the use of street drugs and alcohol. Take all medications as prescribed. When you are in need of refills on your medications please contact your medical provider and/or outpatient psychiatrist to have this done. Please go to scheduled outpatient appointment for aftercare treatment. If symptoms return or become worse, call the crisis line at and/or go to the nearest emergency room for evaluation.
[2020-03-08] MEDS: LORazepam 1 MG TAB PO PRN (12:18)
[2020-03-08 12:20] VITALS: BP 123/66; PULSE 95
[2020-03-08 13:11] VITALS: TEMP 97.5
== END 2020-03-08 16:08 | disposition home or self-care (01) | DRG 885 ==
LOC: EC 22:39 → 3MHU 02-26 02:37
PROVIDERS: ADMIT Psychiatry & Neurology Psychiatry; ATTEND Psychiatry & Neurology Psychiatry
DX: F25.9 Schizoaffective disorder, unspecified (principal); Z68.41 Body mass index [BMI] 40.0-44.9, adult; F41.0 Panic disorder [episodic paroxysmal anxiety]; I10 Essential (primary) hypertension; E66.01 Morbid (severe) obesity due to excess calories; F12.20 Cannabis dependence, uncomplicated; F15.10 Other stimulant abuse, uncomplicated; F16.10 Hallucinogen abuse, uncomplicated; F17.210 Nicotine dependence, cigarettes, uncomplicated; Z87.19 Personal history of other diseases of the digestive system; Z79.899 Other long term (current) drug therapy; Z65.3 Problems related to other legal circumstances
CPT/HCPCS: 71045; 80053; 80061; 80306; 81001; 82075; 82248; 83036; 84443; 85025; 96372; 99285

== ENCOUNTER 2023-03-06 12:41 | Emergency (ER) | payer OTHER ==
[2023-03-06 12:53] VITALS: RESP 18; TEMP 98.5
[2023-03-06] MEDS ORDERED: FAMOTIDINE 20 MG/2 ML VIAL IV STA (14:54)
[2023-03-06] MEDS ORDERED: ONDANSETRON 4 MG/2 ML VIAL IVP STA (14:54)
[2023-03-06 14:55] LABS: Basophils % (A) 0 %; Eosinophils # (A) 0.1 k/uL (0-0.7); Eosinophils % (A) 1 %; HCT 51.8 % (39.0-53.0); HGB 17.9 gm/dL (13.0-17.5); Lymphocytes # (A) 0.9 k/uL (1.0-4.8); Lymphocytes % (A) 5 %; MCH 35.9 pg (25.0-35.0); MCHC 34.5 g/dL (31.0-37.0); MCV 104.2 fL (80.0-100.0); Macrocytosis Slight; Monocytes # (A) 0.7 k/uL (0-1.0); Monocytes % (A) 4 %; Neutrophils # (A) 17.1 k/uL (1.3-7.7); Neutrophils % (A) 91 %; Platelet Count 292 k/uL (150-450); RBC 4.98 m/uL (4.30-5.90); RDW 13.2 % (11.5-15.5); WBC 18.9 k/uL (3.8-10.6)
[2023-03-06] MEDS ORDERED: SODIUM CHLORIDE 0.9% 500 ML 500 ML IV STA (14:55)
--- NOTE | 2023-03-06 15:03 | ED ---
Nausea/Vomiting/Diarrhea HPI <Dangelo Lunsford - Last Filed: 03/06/23 20:34> - General Source: patient, RN notes reviewed, old records reviewed Mode of arrival: ambulatory Limitations: no limitations - History of Present Illness MD complaint: nausea, vomiting, abdominal pain -: days(s) Description of Vomiting: watery Location: LUQ, RUQ Severity scale (1-10): 6 Quality: aching Associated Symptoms: denies other symptoms <Julio Cesar Kyle - Last Filed: 03/08/23 06:15> - General Chief complaint: Nausea/Vomiting/Diarrhea Stated complaint: Vomitting Time Seen by Provider: 03/06/23 14:39 - History of Present Illness Initial comments: 32-year-old male presents to the emergency room with his mother complaining of nausea and diaphoresis with upper abdominal pain that started this morning. Patient states that he does smoke marijuana daily. Also has been drinking daily. Last drink was yesterday. Drinks a fifth in two days. Denies any fevers or diarrhea. Patient denies any homicidal or suicidal ideations. Does have history of hypertension and schizophrenia. Mom states that patient has been being treated for the past 12 years for schizophrenia with Haldol at [facility]. Did get his monthly injec tion in the beginning of February. She states that he is trying to self medicate with alcohol and marijuana and the doctors did not want to prescribe him anything for his schizophrenia while he's drinking and smoking. Mom also states the patient is trying to buy ketamine online to help with his schizophrenia. She states he is also fixated on getting Adderall. (Julio Cesar Kyle) - Related Data Home Medications Medication Instructions Recorded Confirmed Benztropine Mesylate [Cogentin] 1 mg PO BID PRN 03/06/23 03/06/23 Haloperidol Decanoate [Haldol D] 200 mg IM Q30D 03/06/23 03/06/23 Allergies Allergy/AdvReac Type Severity Reaction Status Date / Time No Known Allergies Allergy Verified 03/06/23 17:21 Review of Systems ROS Other: All systems not noted in ROS Statement are negative. <Dangelo Lunsford - Last Filed: 03/06/23 20:34> ROS Other: All systems not noted in ROS Statement are negative. <Julio Cesar Kyle - Last Filed: 03/08/23 06:15> ROS Statement: Those systems with pertinent positive or pertinent negative responses have been documented in the HPI. Past Medical History Past Medical History: Hypertension Additional Past Medical History / Comment(s): OCCASIONAL SOB, OCCASIONAL BLOOD IN STOOL. STATES HAVING STOMACH PAINS. History of Any Multi-Drug Resistant Organisms: None Reported Past Surgical History: No Surgical Hx Reported Additional Past Surgical History / Comment(s): TEETH PULLED Additional Past Anesthesia/Blood Transfusion Reaction / Comment(s): HAS NOT RECEIVED ANESTHESIA Past Psychological History: Anxiety, Bipolar, Depression, Panic Disorder, Schizoaffective Disorder, Schizophrenia Smoking Status: Current every day smoker Past Alcohol Use History: Daily Past Drug Use History: Marijuana - Past Family History Mother Family Medical History: No Reported History <Julio Cesar Kyle - Last Filed: 03/08/23 06:15> General Exam Limitations: no limitations General appearance: alert, in no apparent distress Head exam: Present: atraumatic Eye exam: Present: normal appearance. Absent: scleral icterus, conjunctival injection, periorbital swelling ENT exam: Present: mucous membranes moist Neck exam: Absent: tenderness, meningismus Respiratory exam: Absent: respiratory distress, accessory muscle use Cardiovascular Exam: Present: tachycardia GI/Abdominal exam: Present: soft. Absent: distended, tenderness, guarding, rebound, rigid Neurological exam: Present: alert, oriented X3 Psychiatric exam: Present: normal affect, normal mood Skin exam: Present: warm, dry, normal color. Absent: cyanosis, diaphoretic, petechiae, pallor <Julio Cesar Kyle - Last Filed: 03/08/23 06:15> Course Vital Signs 03/06/23 03/06/23 03/06/23 12:49 14:39 15:20 Temperature 98.5 F Pulse Rate 132 H 115 H 124 H Respiratory 18 18 18 Rate Blood Pressure 145/79 151/89 O2 Sat by Pulse 96 95 96 Oximetry 03/06/23 03/06/23 03/06/23 17:46 19:10 20:21 Temperature Pulse Rate 122 H 130 H 110 H Respiratory 18 18 18 Rate Blood Pressure 150/82 155/83 O2 Sat by Pulse 97 97 97 Oximetry Medical Decision Making - Lab Data Result diagrams: 03/06/23 14:35 03/06/23 14:35 <Dangelo Lunsford - Last Filed: 03/06/23 20:34> - Lab Data Result diagrams: 03/06/23 14:35 03/06/23 14:35 <Terence Kylei - Last Filed: 03/08/23 06:15> - Medical Decision Making Was pt. sent in by a medical professional or institution (, PA, TRAY SETTER, urgent care, hospital, or alf...) When possible be specific @ -[No] Did you speak to anyone other than the patient for history (EMS, parent, family, police, friend...)? What history was obtained from this source @ -Mother provided mental health history, currently seeing [facility] and getting Haldol injections beginning of every month and has been compliant. States continues to struggle with schizophrenia seeking marijuana and alcohol to calm the voices. Did you review nursing and triage notes (agree or disagree)? Why? @ -[I reviewed and agree with nursing and triage notes] Were old charts reviewed (outside hosp., previous admission, EMS record, old EKG, old radiological studies, urgent care reports/EKG's, alf records)? Report findings @ -[No old charts were reviewed] Differential Diagnosis (chest pain, altered mental status, abdominal pain women, abdominal pain men, vaginal bleeding, weakness, fever, dyspnea, syncope, headache, dizziness, GI bleed, back pain, seizure, CVA, palpatations, mental health, musculoskeletal)? @ -Differential Mental Health Depression, anxiety, bipolar, psychosis, schizophrenia, borderline personality, situational depression, adjustment disorder, behavioral disorder, brain tumor, malingering, substance abuse, encephalopathy, medication reaction, dementia, hypothyroidism, degenerative neurologic disorder, lupus.... This is not meant to be all-inclusive list Differential Abdominal Pain Men: Appendicitis, cholecystitis, diverticulosis, ischemic bowel, pancreatitis, hepatitis, UTI, gastroenteritis, AAA, incarcerated hernia, bowel obstruction, constipation, inflammatory bowel, hepatitis, peptic ulcer disease, splenic infarction, perforated viscus, testicular torsion, this is not meant to be an all-inclusive list EKG interpreted by me (3pts min.). @ -n/a X-rays interpreted by me (1pt min.). @ -Chest x-ray interpreted by me shows no evidence of focal consolidation, no free air. Trachea midline. No significant hiatal hernia noted. Cardiac silhouette within normal size. CT interpreted by me (1pt min.). @ -[None done] U/S interpreted by me (1pt. min.). @ -[None done] What testing was considered but not performed or refused? (CT, X-rays, U/S, labs)? Why? @ -[None] What meds were considered but not given or refused? Why? @ -[None] Did you discuss the management of the patient with other professionals (professionals i.e. , PA, TRAY SETTER, lab, RT, psych nurse, school social worker, associate brand manager, te acher, infantry weapons officer, casey saw operator)? Give summary @ -[No] Was smoking cessation discussed for >3mins.? @ -[No] Was critical care preformed (if so, how long)? @ -[No] Were there social determinants of health that impacted care today? How? (Homelessness, low income, unemployed, alcoholism, drug addiction, transportation, low edu. Level, literacy, decrease access to med. care, usp, re hab)? @ -Marijuana use, alcohol abuse, schizophrenia Was there de-escalation of care discussed even if they declined (Discuss DNR or withdrawal of care, Hospice)? DNR status @ -[No] What co-morbidities impacted this encounter? (DM, HTN, Smoking, COPD, CAD, Cancer, CVA, ARF, Chemo, Hep., AIDS, mental health diagnosis, sleep apnea, morbid obesity)? @ -Schizophrenia, hypertension Was patient admitted / discharged? Hospital course, mention meds given and route, prescriptions, significant lab abnormalities, going to OR and other pertinent info. @ -Discharged. 32-year-old male presents to the emergency room with his mother complaining of nausea and diaphoresis with upper abdominal pain that started this morning. Denies fevers. Patient states that he does smoke marijuana daily, also has been drinking daily. Last drink was yesterday. Drinks a fifth in two days. Denies any fevers or diarrhea. Patient denies any homicidal or suicidal ideations. Does have history of hypertension and schizophrenia. He states that he does have a history of hiatal hernia has lost a lot of weight which has improved his symptoms. Mom states that patient has been being treated for the past 12 years for schizophrenia with Haldol at [facility]. Did get his monthly injection in the beginning of February. She states that he is trying to self medicate with alcohol and marijuana and the doctors did not want to prescribe him anything for his schizophrenia while he's drinking and smoking. Mom also states the patient is trying to buy ketamine online to help with his schizophrenia. She states he is also fixated on getting Adderall. Abdomen is soft and nontender on exam. Patient states that his abdomen hurts only on the sides from vomiting. Radiologist interpretation of chest x-ray no acute radiographic process. Labs show leukocytes also some 18.9 with a left shift. This is likely related to patient's persistent vomiting today. Electrolytes with no concerning results. Patient is tolerating water and crackers. Heart rate remains 126 despite initial IVF bolus. Additional IV fluid bolus was given. Case signed out to Dr. Lunsford for disposition. Undiagnosed new problem with uncertain prognosis? @ -[No] Drug Therapy requiring intensive monitoring for toxicity (Heparin, Nitro, Insulin, Cardizem)? @ -[No] Were any procedures done? @ -[No] Diagnosis/symptom? @ -[default] Acute, or Chronic, or Acute on Chronic? @ -[default] Uncomplicated (without systemic symptoms) or Complicated (systemic symptoms)? @ -[default] Side effects of treatment? @ -[No] Exacerbation, Progression, or Severe Exacerbation? @ -[No] Poses a threat to life or bodily function? How? (Chest pain, USA, ME, pneumonia, PE, COPD, DKA, ARF, appy, cholecystitis, CVA, Diverticulitis, Homicidal, Suicidal, threat to staff... and all critical care pts) @ -[No] (Julio Cesar Kyle) - Lab Data Lab Results 03/06/23 03/06/23 03/06/23 Range/Units 14:35 14:35 14:35 WBC 18.9 H (3.8-10.6) k/uL RBC 4.98 (4.30-5.90) m/uL Hgb 17.9 H (13.0-17.5) gm/dL Hct 51.8 (39.0-53.0) % MCV 104.2 H (80.0-100.0) fL MCH 35.9 H (25.0-35.0) pg MCHC 34.5 (31.0-37.0) g/dL RDW 13.2 (11.5-15.5) % Plt Count 292 (150-450) k/uL MPV 7.0 Neutrophils % 91 % Lymphocytes % 5 % Monocytes % 4 % Eosinophils % 1 % Basophils % 0 % Neutrophils # 17.1 H (1.3-7.7) k/uL Lymphocytes # 0.9 L (1.0-4.8) k/uL Monocytes # 0.7 (0-1.0) k/uL Eosinophils # 0.1 (0-0.7) k/uL Basophils # 0.0 (0-0.2) k/uL Macrocytosis Slight D-Dimer (<0.60) mg/L FEU Sodium 136 L (137-145) mmol/L Potassium 4.7 (3.5-5.1) mmol/L Chloride 99 (98-107) mmol/L Carbon Dioxide 11 L (22-30) mmol/L Anion Gap 26 mmol/L BUN 12 (9-20) mg/dL Creatinine 0.93 (0.66-1.25) mg/dL Est GFR (CKD-EPI)AfAm >90 (>60 ml/min/1.73 sqM) Est GFR (CKD-EPI)NonAf >90 (>60 ml/min/1.73 sqM) Glucose 109 H (74-99) mg/dL Calcium 9.6 (8.4-10.2) mg/dL Total Bilirubin 1.4 H (0.2-1.3) mg/dL AST 38 (17-59) U/L ALT 41 (4-49) U/L Alkaline Phosphatase 101 (38-126) U/L Total Protein 8.2 (6.3-8.2) g/dL Albumin 5.1 H (3.5-5.0) g/dL Amylase 60 (30-110) U/L Lipase 33 (23-300) U/L Urine Color Yellow Urine Appearance Clear (Clear) Urine pH 5.5 (5.0-8.0) Ur Specific [place] 1.026 (1.001-1.035) Urine Protein 1+ H (Negative) Urine Glucose (UA) Negative (Negative) Urine Ketones 4+ H (Negative) Urine Blood Negative (Negative) Urine Nitrite Negative (Negative) Urine Bilirubin 1+ H (Negative) Urine Urobilinogen 4.0 (<2.0) mg/dL Ur Leukocyte Esterase Negative (Negative) Urine RBC <1 (0-5) /hpf Urine WBC <1 (0-5) /hpf Ur Squamous Epith Cells <1 (0-4) /hpf Urine Mucus Rare H (None) /hpf Urine Opiates Screen (NotDetected) Ur Oxycodone Screen (NotDetected) Urine Methadone Screen (NotDetected) Ur Propoxyphene Screen (NotDetected) Ur Barbiturates Screen (NotDetected) U Tricyclic Antidepress (NotDetected) Ur Phencyclidine Scrn (NotDetected) Ur Amphetamines Screen (NotDetected) U Methamphetamines Scrn (NotDetected) U Benzodiazepines Scrn (NotDetected) Urine Cocaine Screen (NotDetected) U Marijuana (THC) Screen (NotDetected) 03/06/23 03/06/23 Range/Units 14:35 14:35 WBC (3.8-10.6) k/uL RBC (4.30-5.90) m/uL Hgb (13.0-17.5) gm/dL Hct (39.0-53.0) % MCV (80.0-100.0) fL MCH (25.0-35.0) pg MCHC (31.0-37.0) g/dL RDW (11.5-15.5) % Plt Count (150-450) k/uL MPV Neutrophils % % Lymphocytes % % Monocytes % % Eosinophils % % Basophils % % Neutrophils # (1.3-7.7) k/uL Lymphocytes # (1.0-4.8) k/uL Monocytes # (0-1.0) k/uL Eosinophils # (0-0.7) k/uL Basophils # (0-0.2) k/uL Macrocytosis D-Dimer 0.31 (<0.60) mg/L FEU Sodium (137-145) mmol/L Potassium (3.5-5.1) mmol/L Chloride (98-107) mmol/L Carbon Dioxide (22-30) mmol/L Anion Gap mmol/L BUN (9-20) mg/dL Creatinine (0.66-1.25) mg/dL Est GFR (CKD-EPI)AfAm (>60 ml/min/1.73 sqM) Est GFR (CKD-EPI)NonAf (>60 ml/min/1.73 sqM) Glucose (74-99) mg/dL Calcium (8.4-10.2) mg/dL Total Bilirubin (0.2-1.3) mg/dL AST (17-59) U/L ALT (4-49) U/L Alkaline Phosphatase (38-126) U/L Total Protein (6.3-8.2) g/dL Albumin (3.5-5.0) g/dL Amylase (30-110) U/L Lipase (23-300) U/L Urine Color Urine Appearance (Clear) Urine pH (5.0-8.0) Ur Specific [place] (1.001-1.035) Urine Protein (Negative) Urine Glucose (UA) (Negative) Urine Ketones (Negative) Urine Blood (Negative) Urine Nitrite (Negative) Urine Bilirubin (Negative) Urine Urobilinogen (<2.0) mg/dL Ur Leukocyte Esterase (Negative) Urine RBC (0-5) /hpf Urine WBC (0-5) /hpf Ur Squamous Epith Cells (0-4) /hpf Urine Mucus (None) /hpf Urine Opiates Screen Not Detected (NotDetected) Ur Oxycodone Screen Not Detected (NotDetected) Urine Methadone Screen Not Detected (NotDetected) Ur Propoxyphene Screen Not Detected (NotDetected) Ur Barbiturates Screen Not Detected (NotDetected) U Tricyclic Antidepress Not Detected (NotDetected) Ur Phencyclidine Scrn Not Detected (NotDetected) Ur Amphetamines Screen Not Detected (NotDetected) U Methamphetamines Scrn Not Detected (NotDetected) U Benzodiazepines Scrn Not Detected (NotDetected) Urine Cocaine Screen Not Detected (NotDetected) U Marijuana (THC) Screen Detected H (NotDetected) Disposition <Dangelo Lunsford - Last Filed: 03/06/23 20:34> Is patient prescribed a controlled substance at d/c from ED?: No Time of Disposition: 20:21 <Julio Cesar Kyle - Last Filed: 03/08/23 06:15> Clinical Impression: Nausea & vomiting Disposition: HOME SELF-CARE Condition: Good Instructions (If sedation given, give patient instructions): Acute Nausea and Vomiting (ED) Additional Instructions: Increase your fluid intake. Stop smoking marijuana. Stop taking drinking alcohol in excess. Follow-up with [facility] regarding schizophrenia. Follow-up with the primary care doctor next week. Return to the emergency room with any new or concerning symptoms. Referrals: None,Stated [Primary Care Provider] - 1-2 days
[2023-03-06 15:10] LABS: ALT 41 U/L (4-49); AST 38 U/L (17-59); African American GFR (CKD) >90 (>60 ml/min/1.73 sqM); Albumin 5.1 g/dL (3.5-5.0); Alkaline Phosphatase 101 U/L (38-126); Amylase 60 U/L (30-110); Anion Gap 26 mmol/L; Blood Urea Nitrogen 12 mg/dL (9-20); Calcium 9.6 mg/dL (8.4-10.2); Carbon Dioxide 11 mmol/L (22-30); Chloride 99 mmol/L (98-107); Glucose 109 mg/dL (74-99); Lipase 33 U/L (23-300); Non-African American GFR(CKD) >90 (>60 ml/min/1.73 sqM); Potassium 4.7 mmol/L (3.5-5.1); Sodium 136 mmol/L (137-145); Total Bilirubin 1.4 mg/dL (0.2-1.3); Total Protein 8.2 g/dL (6.3-8.2)
[2023-03-06 15:55] LABS: Appearance,Urine Clear (Clear); Bilirubin,Urine 1+ (Negative); Blood,Urine Negative (Negative); Color,Urine Yellow; Glucose,Urine (UA) Negative (Negative); Ketones,Urine 4+ (Negative); Leukocyte Esterase,Urine Negative (Negative); Mucus,Urine Rare /hpf; Nitrite,Urine Negative (Negative); PH, Urine 5.5 (5.0-8.0); Protein,Urine 1+ (Negative); RBC,Urine <1 /hpf (0-5); Specific Gravity,Urine 1.026 (1.001-1.035); Squamous Epithelial Cell,Urine <1 /hpf (0-4); WBC,Urine <1 /hpf (0-5)
[2023-03-06 16:04] LABS: Cocaine Screen,Urine Not Detected (NotDetected); Opiate Screen,Urine Not Detected (NotDetected); Phencyclidine Screen,Urine Not Detected (NotDetected); Urn Cannabinoid Scrn Detected (NotDetected)
[2023-03-06 16:05] LABS: Amphetamine Screen,Urine Not Detected (NotDetected); Barbiturate Screen,Urine Not Detected (NotDetected); Benzodiazepines Screen,Urine Not Detected (NotDetected); Methadone Screen, Urine Not Detected (NotDetected); Oxycodone Screen, Urine Not Detected (NotDetected); Tricyclic Antidepressant,Urine Not Detected (NotDetected)
--- NOTE | 2023-03-06 17:51 | XR ---
EXAMINATION: XR chest 2V: 03/06/2023 5:32 PM CLINICAL INDICATION: pain Additional: Nausea and vomiting. TECHNIQUE: Frontal and lateral views COMPARISON: AP upright portable 02/26/2020 FINDINGS: The lungs are clear. The pleural spaces are negative. EKG leads. The cardiac silhouette is not enlarged. The remainder of the mediastinal silhouette is unr emarkable. The skeletal structures and soft tissues are negative for acute findings. IMPRESSION: No acute radiographic process.
[2023-03-06] MEDS ORDERED: SODIUM CHLORIDE 0.9% 500 ML 500 ML IV ONE (19:00)
[2023-03-06] MEDS ORDERED: METOCLOPRAMIDE 5 MG/ML 2 ML VIAL IVP STA (19:00)
[2023-03-06 20:22] VITALS: BP 155/83; PULSE 110
[2023-03-06] MEDS ORDERED: ONDANSETRON 4 MG ODT STARTER PACK 2 TAB BTL PO STA (20:34)
== END 2023-03-06 20:42 | disposition home or self-care (01) ==
LOC: EC 12:41
DX: R11.2 Nausea with vomiting, unspecified (principal); I10 Essential (primary) hypertension; F41.9 Anxiety disorder, unspecified; F31.9 Bipolar disorder, unspecified; F17.200 Nicotine dependence, unspecified, uncomplicated; F12.90 Cannabis use, unspecified, uncomplicated; Z79.899 Other long term (current) drug therapy
CPT/HCPCS: 36415; 85379; 80053; 82150; 83690; 85025; 81001; 80306; 71046; 99284; 96374; 96375 ×2; J2765; J2405; S0119

== ENCOUNTER 2023-03-13 16:22 | Inpatient (IN) | payer OTHER ==
--- NOTE | 2023-03-13 17:13 | ED ---
General Adult HPI - General Chief complaint: Psychiatric Symptoms Stated complaint: Petitions Time Seen by Provider: 03/13/23 16:53 Source: patient, police, RN notes reviewed, old records reviewed Mode of arrival: ambulatory Limitations: no limitations - History of Present Illness Initial comments: 32 -year-old male presenting for psychiatric evaluation. Patient has "ordered petitioned for psychiatric evaluation. He denies suicidal or homicidal thoughts. He states he does have hallucinations and hears voices. Patient is cooperative with my initial assessment. No physical complaints. - Related Data Home Medications Medication Instructions Recorded Confirmed Benztropine Mesylate [Cogentin] 1 mg PO BID PRN 03/06/23 03/13/23 Haloperidol Decanoate [Haldol D] 200 mg IM Q30D 03/06/23 03/13/23 Allergies Allergy/AdvReac Type Severity Reaction Status Date / Time No Known Allergies Allergy Verified 03/13/23 18:46 Review of Systems ROS Statement: Those systems with pertinent positive or pertinent negative responses have been documented in the HPI. ROS Other: All systems not noted in ROS Statement are negative. Past Medical History Past Medical History: Hypertension Additional Past Medical History / Comment(s): OCCASIONAL SOB, OCCASIONAL BLOOD IN STOOL. STATES HAVING STOMACH PAINS. History of Any Multi-Drug Resistant Organisms: None Reported Past Surgical History: No Surgical Hx Reported Additional Past Surgical History / Comment(s): TEETH PULLED Additional Past Anesthesia/Blood Transfusion Reaction / Comment(s): HAS NOT RECEIVED ANESTHESIA Past Psychological History: Anxiety, Bipolar, Depression, Panic Disorder, Schizoaffective Disorder, Schizophrenia Smoking Status: Current every day smoker Past Alcohol Use History: Daily Past Drug Use History: Marijuana - Past Family History Mother Family Medical History: No Reported History General Exam Limitations: no limitations General appearance: alert, in no apparent distress Head exam: Present: atraumatic, normocephalic Eye exam: Present: normal appearance, PERRL ENT exam: Present: normal exam Neck exam: Present: normal inspection. Absent: tenderness, meningismus Respiratory exam: Present: normal lung sounds bilaterally. Absent: respiratory distress Cardiovascular Exam: Present: regular rate, normal rhythm GI/Abdominal exam: Present: soft. Absent: distended, tenderness, guarding Extremities exam: Present: normal inspection, normal capillary refill Neurological exam: Present: alert, oriented X3, CN II-XII intact. Absent: motor sensory deficit Psychiatric exam: Absent: homicidal ideation, suicidal ideation Skin exam: Present: warm, dry Course Vital Signs 03/13/23 16:32 Temperature 98.1 F Pulse Rate 96 Respiratory 18 Rate Blood Pressure 117/83 O2 Sat by Pulse 95 Oximetry - Reevaluation(s) Reevaluation #1: 03/13/23 17:00 Cleared for EPS Medical Decision Making - Medical Decision Making Was pt. sent in by a medical professional or institution (, PA, MEDICAL IMAGING DIRECTOR, urgent care, hospital, or penitentiary...) When possible be specific @ -[Sent for psychiatric evaluation Did you speak to anyone other than the patient for history (EMS, parent, family, police, friend...)? What history was obtained from this source @ -No Did you review nursing and triage notes (agree or disagree)? Why? @ -I reviewed and agree with nursing and triage notes Were old charts reviewed (outside hosp., previous admission, EMS record, old EKG, old radiological studies, urgent care reports/EKG's, penitentiary records)? Report findings @ -No old charts were reviewed Differential Diagnosis (chest pain, altered mental status, abdominal pain women, abdominal pain men, vaginal bleeding, weakness, fever, dyspnea, syncope, headache, dizziness, GI bleed, back pain, seizure, CVA, palpatations, mental health, musculoskeletal)? @ -[Differential Mental Health Depression, anxiety, bipolar, psychosis, schizophrenia, borderline personality, situational depression, adjustment disorder, behavioral disorder, brain tumor, malingering, substance abuse, encephalopathy, medication reaction, dementia, hypothyroidism, degenerative neurologic disorder, lupus.... This is not meant to be all-inclusive list EKG interpreted by me (3pts min.). @ -As above X-rays interpreted by me (1pt min.). @ -None done CT interpreted by me (1pt min.). @ -None done U/S interpreted by me (1pt. min.). @ -None done What testing was considered but not performed or refused? (CT, X-rays, U/S, labs)? Why? @ -None What meds were considered but not given or refused? Why? @ -None Did you discuss the management of the patient with other professionals (professionals i.e. , MARIAN, MEDICAL IMAGING DIRECTOR, lab, RT, psych nurse, social media intern, child and family services worker, teacher, armed custom protection officer, shelter case manager)? Give summary @ -No Was smoking cessation discussed for >3mins.? @ -No Was critical care preformed (if so, how long)? @ -No Were there social determinants of health that impacted care today? How? (Homelessness, low income, unemployed, alcoholism, drug addiction, transportation, low edu. Level, literacy, decrease access to med. care, skilled nursing, re hab)? @ -No Was there de-escalation of care discussed even if they declined (Discuss DNR or withdrawal of care, Hospice)? DNR status @ -No What co-morbidities impacted this encounter? (DM, HTN, Smoking, COPD, CAD, Cancer, CVA, ARF, Chemo, Hep., AIDS, mental health diagnosis, sleep apnea, morbid obesity)? @ -[Schizophrenia Was patient admitted / discharged? Hospital course, mention meds given and route, prescriptions, significant lab abnormalities, going to OR and other pertinent info. @ Patient presenting for mental health evaluation, patient has diagnosis as schizophrenia. Patient compliant with assessment. He will require inpatient admission and Covid testing was performed prior to taking the patient to the mental health unit. This test was positive the patient does currently have coronavirus. It was recommended that the patient receive a medical admission with psychiatry on consult. I discussed case with Dr. Edgar, who will admit. Undiagnosed new problem with uncertain prognosis? @ -No Drug Therapy requiring intensive monitoring for toxicity (Heparin, Nitro, Insulin, Cardizem)? @ -No Were any procedures done? @ -No Diagnosis/symptom? @ -[Acute psychosis, Covid Acute, or Chronic, or Acute on Chronic? @ -Acute Uncomplicated (without systemic symptoms) or Complicated (systemic symptoms)? @ -default Side effects of treatment? @ -No Exacerbation, Progression, or Severe Exacerbation? @ -No Poses a threat to life or bodily function? How? (Chest pain, USA, ME, pneumonia, PE, COPD, DKA, ARF, appy, cholecystitis, CVA, Diverticulitis, Homicidal, Suicidal, threat to staff... and all critical care pts) @ -[Moderate risk - Lab Data Lab Results 03/13/23 03/13/23 Range/Units 17:09 17:09 Urine Opiates Screen Not Detected (NotDetected) Ur Oxycodone Screen Not Detected (NotDetected) Urine Methadone Screen Not Detected (NotDetected) Ur Propoxyphene Screen Not Detected (NotDetected) Ur Barbiturates Screen Not Detected (NotDetected) U Tricyclic Antidepress Not Detected (NotDetected) Ur Phencyclidine Scrn Not Detected (NotDetected) Ur Amphetamines Screen Not Detected (NotDetected) U Methamphetamines Scrn Not Detected (NotDetected) U Benzodiazepines Scrn Not Detected (NotDetected) Urine Cocaine Screen Not Detected (NotDetected) U Marijuana (THC) Screen Detected H (NotDetected) Influenza Type A (PCR) Not Detected (Not Detectd) Influenza Type B (PCR) Not Detected (Not Detectd) RSV (PCR) Not Detected (Not Detectd) SARS-CoV-2 (PCR) Detected A (Not Detectd) Disposition Clinical Impression: Hallucination, Psychosis, COVID-19 Disposition: ADMITTED IP TO THIS [facility] Condition: Stable Is patient prescribed a controlled substance at d/c from ED?: No Referrals: None,Stated [Primary Care Provider] - 1-2 days Time of Disposition: 20:39
[2023-03-13 18:08] LABS: Amphetamine Screen,Urine Not Detected (NotDetected); Barbiturate Screen,Urine Not Detected (NotDetected); Benzodiazepines Screen,Urine Not Detected (NotDetected); Cocaine Screen,Urine Not Detected (NotDetected); Methadone Screen, Urine Not Detected (NotDetected); Opiate Screen,Urine Not Detected (NotDetected); Oxycodone Screen, Urine Not Detected (NotDetected); Phencyclidine Screen,Urine Not Detected (NotDetected); Tricyclic Antidepressant,Urine Not Detected (NotDetected); Urn Cannabinoid Scrn Detected (NotDetected)
[2023-03-13] MEDS ORDERED: NALOXONE 0.4 MG/ML 1 ML VIAL IV PRN (20:32)
[2023-03-13] MEDS ORDERED: ACETAMINOPHEN TAB 325 MG TAB PO PRN (20:32)
--- NOTE | 2023-03-14 00:28 | P.HPIM ---
History of Present Illness H&P Date: 03/13/23 The patient is a 32-year-old male with a PMH of schizophrenia who presented to the emergency room with complaints of auditory and visual hallucinations. The patient requested a psychiatric evaluation. Reports a long-standing history of hallucinations schizophrenia and states that he has come to terms with this voices and that they no longer tongue to hurt himself. He states however that his mother wanted him to seek further help she does not think he is well. He denied any physical complaints. He denied experiencing chest discomfort, shortness of breath, fever, chills, cough, nausea, vomiting, abdominal pain, diarrhea. He denied suicidal or homicidal ideation. In the emergency room, coronavirus PCR testing was positive. Laboratory evaluation revealed urine tox positive for marijuana. ED documentation reviewed and case discussed with ED provider. Review of systems: Pertinent positives and negatives as discussed in HPI, a complete review of systems was performed and all other systems are negative. Physical examination: Vital signs reviewed General: non toxic, no distress, appears at stated age, morbidly obese Derm: no unusual rashes/lesions, warm Head: atraumatic, normocephalic, symmetric Eyes: EOMI, no lid lag, anicteric sclera, pupils equal round reactive to light ENT: Nose and ears atraumatic Neck: No cervical lymphadenopathy, trachea midline, supple Mouth: no lip lesion, mucus membranes moist Cardiovascular: S1S2 reg, no murmur, positive dorsalis pedis pulse bilateral, no edema Lungs: CTA bilateral, no rhonchi, no rales, no accessory muscle use Abdominal: soft, nontender to palpation, no guarding Ext: muscle strength 5 out of 5 in all 4 extremities grossly, no gross muscle atrophy, no contractures, Neuro: CN II-XI grossly intact, no gross focal neuro deficits Psych: Alert, oriented, appropriate affect Assessment: Coronavirus PCR positive, patient asymptomatic Schizophrenia Imaging: None performed Data Review: In the emergency room, coronavirus PCR testing was positive. Laboratory evaluation revealed urine tox positive for marijuana. Plan: Psychiatry engagement quality consultant Discussed with ED physician in detail who noted that the current policy is that the patient will need to be monitored on the medical floor for 3-4 days and subsequently transferred to the mental health unit DVT prophylaxis: Lovenox subq The patient is admitted with an anticipated greater than 2 midnight stay for evaluation of COVID CODE STATUS: Full Code Discussed with: Patient [place]ticip[place] [facility] [place] Medical History Past Medical History: Hypertension Additional Past Medical History / Comment(s): OCCASIONAL SOB, OCCASIONAL BLOOD IN STOOL. STATES HAVING STOMACH PAINS. History of Any Multi-Drug Resistant Organisms: None Reported Past Surgical History: No Surgical Hx Reported Additional Past Surgical History / Comment(s): TEETH PULLED Additional Past Anesthesia/Blood Transfusion Reaction / Comment(s): HAS NOT RECEIVED ANESTHESIA Past Psychological History: Anxiety, Bipolar, Depression, Panic Disorder, Schizoaffective Disorder, Schizophrenia Smoking Status: Current every day smoker Past Alcohol Use History: Daily Past Drug Use History: Marijuana - Past Family History Mother Family Medical History: Hypertension Medications and Allergies Home Medications Medication Instructions Recorded Confirmed Type Benztropine Mesylate [Cogentin] 1 mg PO BID PRN 03/06/23 03/13/23 History Haloperidol Decanoate [Haldol D] 200 mg IM Q30D 03/06/23 03/13/23 History Allergies Allergy/AdvReac Type Severity Reaction Status Date / Time No Known Allergies Allergy Verified 03/13/23 18:46 Physical Exam Vitals: Vital Signs Temp Pulse Resp BP Pulse Ox 03/13/23 16:32 98.1 F 96 18 117/83 95 Intake and Output 03/13/23 03/13/23 03/13/23 06:59 14:59 22:59 Other: Weight 124.738 kg Results Labs: Abnormal Lab Results - Last 24 Hours (Table) 03/13/23 03/13/23 Range/Units 17:09 17:09 U Marijuana (THC) Screen Detected H (NotDetected) SARS-CoV-2 (PCR) Detected A (Not Detectd)
[2023-03-14 08:39] LABS: HCT 49.5 % (39.0-53.0); MCH 35.2 pg (25.0-35.0); MCHC 34.4 g/dL (31.0-37.0); MCV 102.3 fL (80.0-100.0); Macrocytosis Slight; Mean Platelet Volume 7.8; Platelet Count 118 k/uL (150-450); RBC 4.84 m/uL (4.30-5.90); RDW 12.9 % (11.5-15.5); WBC 2.2 k/uL (3.8-10.6)
[2023-03-14 08:58] LABS: ALT 113 U/L (4-49); AST 66 U/L (17-59); African American GFR (CKD) >90 (>60 ml/min/1.73 sqM); Albumin 3.6 g/dL (3.5-5.0); Albumin/Globulin Ratio 1.3; Alkaline Phosphatase 64 U/L (38-126); Anion Gap 3 mmol/L; Blood Urea Nitrogen 8 mg/dL (9-20); Calcium 8.2 mg/dL (8.4-10.2); Carbon Dioxide 31 mmol/L (22-30); Chloride 102 mmol/L (98-107); Globulin 2.7 g/dL; Glucose 108 mg/dL (74-99); Magnesium 2.2 mg/dL (1.6-2.3); Non-African American GFR(CKD) >90 (>60 ml/min/1.73 sqM); Sodium 136 mmol/L (137-145); Total Bilirubin 0.7 mg/dL (0.2-1.3); Total Protein 6.3 g/dL (6.3-8.2)
[2023-03-14] MEDS ORDERED: BENZTROPINE MESYLATE 1 MG TAB PO PRN (13:09)
[2023-03-14] MEDS ORDERED: OLANZapine 5 MG TAB PO PRN (13:55)
[2023-03-14] MEDS ORDERED: OLANZapine 10 MG VIAL IM PRN (13:55)
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
--- NOTE | 2023-03-14 19:20 | P.PN ---
Subjective Progress Note Date: 03/14/23 (delayed charting seen at ETOH abuse) Patient is a 32-year-old male with known schizophrenia initially presented for mental health evaluation was inadvertently found to have COVID. Patient seen and examined at bedside. Denies any chest pain, shortness of breath, nausea, vomiting. He is feeling slightly tired today. Vital signs reviewed General: nontoxic, no distress, appears at stated age Derm: warm, dry Cardiovascular: S1S2 reg, no murmur, positive posterior tibial pulse bilateral, no edema, capillary refill less than 2 seconds Lungs: clear to auscultation bilateral, no rhonchi, no rales, no wheeze, no accessory muscle use Abdominal: soft, nontender to palpation, no guarding, no appreciable organomegaly, normal bowel sounds Psych: Alert, oriented, appropriate affect Assessment/plan: COVID Leukopenia Thrombocytopenia - follow CBC - no indication for dedicated COVID treatment Transaminitis - likely due to recent ETOH abuse, has been sober for 2 weeks. repeat labs in AM Schizophrenia - Psych note reviewed: will need inpatient, cannot leave AMA at this time. Imaging: None new Data Review: Labs remarkable for white blood cell count 2.2, platelet count 118, sodium 136, carbon dioxide 31, BUN 8, glucose 108, calcium 8.2, AST 66, ALT 113, DVT prophylaxis: lovenox Anticipated discharge date: Pending Clinical Course Anticipated discharge place: Pending Clinical Course This dictation was prepared using [employer] voice recognition software. Though every attempt is made to correct errors during dictation some may still exist. Objective - Vital Signs Vital signs: Vital Signs Temp 97.8 F 03/14/23 14:25 Pulse 82 03/14/23 14:25 Resp 17 03/14/23 14:25 BP 129/81 03/14/23 14:25 Pulse Ox 96 03/14/23 14:25 FiO2 Intake & Output 03/14/23 03/14/23 03/15/23 06:59 18:59 06:59 Weight 124.738 kg Other: # Voids 1 0 - Labs CBC & Chem 7: 03/14/23 08:27 03/14/23 08:27 Labs: Abnormal Lab Results - Last 24 Hours (Table) 03/14/23 03/14/23 Range/Units 08:27 08:27 WBC 2.2 L (3.8-10.6) k/uL MCV 102.3 H (80.0-100.0) fL MCH 35.2 H (25.0-35.0) pg Plt Count 118 L D (150-450) k/uL Sodium 136 L (137-145) mmol/L Carbon Dioxide 31 H (22-30) mmol/L BUN 8 L (9-20) mg/dL Glucose 108 H (74-99) mg/dL Calcium 8.2 L (8.4-10.2) mg/dL AST 66 H (17-59) U/L ALT 113 H (4-49) U/L
[2023-03-14] MEDS: MIRTAZAPINE 15 MG TAB PO SCH (20:29)
[2023-03-15] MEDS: NICOTINE 21MG/24HR PATCH TRANSDERM SCH (07:56)
--- NOTE | 2023-03-15 11:53 | P.PN ---
Progress Note - Text Progress Note Date: 03/15/23 Interval History: Patient was seen today for psychiatric follow-up while on the medical floors. Nurse taking care of patient states that she has no complaints and patient has been taking his medications and had a good rest last night. Patient was seen lying in bed turned to the side and was sleeping and was awoken by loan underwriter. Patient states that he is doing okay today, denied any issues during the day today. He states that he likes taking the Remeron and claimed that it helped him with sleep last night. He did state that he had a "weird dream" and was trying to decipher whether he was voices or not however when asked again patient states that "I'm not hearing any voices anymore since I got here". We reflected back on his need for hospitalization, medications and also disposition going forward, also discussed need for long-acting injection to be given Friday morning. At this time patient denies any suicidal or homical ideations, intent or plan. Patient denies any current auditory, visual hallucinations and denies any paranoia or delusions. Patient denies any side effects from the medications and has been compliant with meds. Mental Status Exam: General Appearance: Patient appears to be stated age is alert, pleasant, and cooperative. Balding, unshaven. Patient appears to have fair hygiene and grooming wearing hospital gown with improving eye contact. Behavior: Patient is calmly lying in bed without any agitated behavior. Attempts to cooperate Speech: Patient's speech is fluent and nonpressured. [place] Mood/Affect: Patient reports their mood is "fine", affect is congruent and constricted Suicidality/Homicidality: Patient denies having any suicidal or homicidal ideation intent or plan. Perceptions: Patient denies any visual hallucinations and denies any auditory hallucinations Though content/process: There is no evidence of any delusional thought content and thought process is linear and goal-directed. Focused on his medications. No paranoia. Memory and concentration: AOX3, grossly intact for the purposes of this session Judgment and insight: Chronically poor, improving mildly IMPRESSIONS: Schizophrenia Cannabis use disorder Nicotine dependence PLAN: -At this time patient DOES meet criteria for inpatient psychiatric admission however due to patient being positive for COVID at this time he will be seen on the medical floors by psychiatry -Would recommend the following medication changes/additions: Haldol Dec 200 mg IM, last dose given on 02/19 and next dose will be given earlier on saturday 03/17 prior to discharge. continue remeron 15 mg qhs for insomnia/appetite however if patient is still hearing voices or not sleeping well at night time then will change to seroquel tomorrow. zyprexa prn for agitation/psychosis. cogentin bid prn for eps prophylaxis. -Continue 1:1 sitter for safety as patient is currently a mental health hold. -Cannot leave AMA at this time. Patient will need a petition and certification if attempting to leave AMA. -patient currently follows up with [facility], will need to arrange for f/u appt on friday -Communicated plan to patient's nurse -Will continue to follow along -Please contact with any questions.
[2023-03-15 13:21] LABS: HCT 50.8 % (39.6-50.0); HGB 17.3 d/dL (12.0-15.0); MCH 34.1 pg (27.0-32.0); MCHC 34.1 d/dL (32.0-37.0); MCV 100.2 FL (80.0-97.0); Mean Platelet Volume 10.6 FL (9.5-12.2); NRBC Per 100 WBC 0 X 10*3/uL (0.00-0.01); Platelet Count 122 X 10*3/uL (140-440); RBC 5.07 X 10*6/uL (4.40-5.60); WBC 3.47 X 10*3/uL (4.50-10.00)
[2023-03-15 13:27] LABS: ALT 140 U/L (10-49); AST 88 U/L (14-35); Albumin 4.2 d/dL (3.8-4.9); Albumin/Globulin Ratio 1.83 Ratio (1.60-3.17); Alkaline Phosphatase 75 U/L (41-126); Blood Urea Nitrogen 4.4 mg/dL (9.0-27.0); Calcium 8.9 mg/dL (8.7-10.3); Carbon Dioxide 23.5 mmol/L (21.6-31.8); Chloride 104 mmol/L (96-109); Globulin 2.3 d/dL (1.6-3.3); Glucose 140 mg/dL (70-110); Potassium 3.9 mmol/L (3.5-5.5); Sodium 139 mmol/L (135-145); Total Bilirubin 0.6 mg/dL (0.3-1.2); Total Protein 6.5 d/dL (6.2-8.2)
--- NOTE | 2023-03-15 15:09 | P.PN ---
Subjective Progress Note Date: 03/15/23 Hospital course: Patient is a 32-year-old male with a past medical history of schizophrenia who initially presented to the emergency department on 03/13/23 for mental health evaluation and inadvertently tested positive for COVID 19 infection. Patient reports feeling tired with an occasional cough but otherwise is asymptomatic at this time. Patient has been evaluated by psychiatry and is reported to meet criteria for inpatient psychiatric admission and is to remain on medical floor with sitter at bedside until quarantine is completed and patient is able to be transferred to inpatient mental health unit. Physical examination: Patient seen and examined at bedside this morning. He reports feeling tired today and states he has had an occasional cough. He denies having any other complaints at this time. Vital signs reviewed General: nontoxic, no distress, appears at stated age Derm: warm, dry Cardiovascular: S1S2 reg, no murmur, positive posterior tibial pulse bilateral, no edema, capillary refill less than 2 seconds Lungs: clear to auscultation bilateral, no rhonchi, no rales, no wheeze, no accessory muscle use Abdominal: soft, nontender to palpation, no guarding, no appreciable organomegaly, normal bowel sounds Psych: Alert, oriented, appropriate affect Assessment and plan of care: COVID infection Leukopenia Thrombocytopenia -Morning labs completed and reviewed. CBC showing slight improvement and leukopenia and thrombocytopenia with WBC count increasing to 3.47 from previous 2.2 and platelet count increasing to 122 from previous 118. -No indication for dedicated COVID treatment -Order placed for repeat morning CBC for continued monitoring for re solution/improvement of leukopenia and thrombocytopenia. Transaminitis -Likely due to recent ETOH abuse -Order placed for repeat CMP with a.m. labs. Schizophrenia -Psychiatry following and Psych note reviewed stating patient will require inpatient hospitalization to mental health unit and cannot leave AMA at this time. -Sitter to remain at bedside. Imaging: -No new imaging for review at this time Data Review: Morning labs completed and reviewed. CBC showing slight improvement of leukop enia with WBC count increasing to 3.47 from previous 2.2, hemoglobin stable at 17.3, and platelet count slightly increasing to 122 from previous 118. BMP unremarkable. Liver profile showing continued elevation of AST 88 and ALT of 140. DVT prophylaxis: Lovenox Anticipated discharge date: Pending Clinical Course Anticipated discharge place: Pending Clinical Course Patient was seen independently by Nurse Pracitioner. This document was prepared using [employer] dictation software. Please allow for errors in supervisor rides, while rare they do occur. I reviewed the documentation as provided by the BERNIE above, who is the original author of this note. I agree with the documented assessment and plan, with the following changes: none Objective - Vital Signs Vital signs: Vital Signs Temp 99.8 F H 03/15/23 01:40 Pulse 85 03/15/23 01:40 Resp 17 03/15/23 01:40 BP 103/71 03/15/23 01:40 Pulse Ox 96 03/15/23 01:40 FiO2 Intake & Output 03/14/23 03/15/23 03/15/23 18:59 06:59 18:59 Other: # Voids 0 2 - Labs CBC & Chem 7: 03/17/23 06:18 03/17/23 06:18 Labs: Abnormal Lab Results - Last 24 Hours (Table) 03/14/23 03/14/23 Range/Units 08:27 08:27 WBC 2.2 L (3.8-10.6) k/uL MCV 102.3 H (80.0-100.0) fL MCH 35.2 H (25.0-35.0) pg Plt Count 118 L D (150-450) k/uL Sodium 136 L (137-145) mmol/L Carbon Dioxide 31 H (22-30) mmol/L BUN 8 L (9-20) mg/dL Glucose 108 H (74-99) mg/dL Calcium 8.2 L (8.4-10.2) mg/dL AST 66 H (17-59) U/L ALT 113 H (4-49) U/L
[2023-03-15] MEDS: MIRTAZAPINE 15 MG TAB PO SCH (21:15)
[2023-03-16] MEDS: NICOTINE 21MG/24HR PATCH TRANSDERM SCH (07:43)
[2023-03-16] MEDS ORDERED: QUEtiapine 50 MG TAB PO PRN (16:06)
--- NOTE | 2023-03-16 16:08 | P.PN ---
Subjective Progress Note Date: 03/16/23 Hospital course: Patient is a 32-year-old male with a past medical history of schizophrenia who initially presented to the emergency department on 03/13/23 for mental health evaluation and inadvertently tested positive for COVID 19 infection. Patient reports feeling tired with an occasional cough but otherwise is asymptomatic at this time. Patient has been evaluated by psychiatry and is reported to meet criteria for inpatient psychiatric admission and is to remain on medical floor with sitter at bedside until quarantine is completed and patient is able to be transferred to inpatient mental health unit. Physical examination: Patient seen and examined at bedside this morning. He reports feeling tired today but also that he is less tired than he felt yesterday. Patient reports continued occasional cough but denies any congestion, sore throat, chest pain, palpitations, nausea, vomiting, headache, dizziness, or any other complaints at this time. Vital signs reviewed General: nontoxic, no distress, appears at stated age Derm: warm, dry Cardiovascular: S1S2 reg, no murmur, positive posterior tibial pulse bilateral, no edema, capillary refill less than 2 seconds Lungs: clear to auscultation bilateral, no rhonchi, no rales, no wheeze, no accessory muscle use Abdominal: soft, nontender to palpation, no guarding, no appreciable organomegaly, normal bowel sounds Psych: Alert, oriented, appropriate affect Assessment and plan of care: COVID infection Leukopenia Thrombocytopenia -No indication for dedicated COVID treatment -Order placed for repeat morning CBC for continued monitoring for resolution/improvement of leukopenia and thrombocytopenia. Transaminitis -Likely due to recent ETOH abuse -Order placed for repeat CMP with a.m. labs will follow-up on results. Schizophrenia -Psychiatry following and Psych note reviewed stating patient will require in patient hospitalization to mental health unit and cannot leave AMA at this time. -Sitter to remain at bedside. Imaging: -No new imaging for review at this time Data Review: Vital signs reviewed. Blood pressure 122/84, heart rate 86, respiratory rate 19, SpO2 98% on room air, and temp 98.8F. DVT prophylaxis: Lovenox Anticipated discharge date: Pending Clinical Course Anticipated discharge place: Pending Clinical Course Patient was seen independently by Nurse Pracitioner. This document was prepared using [employer] dictation software. Please allow for errors in dress operator, while rare they do occur. I reviewed the documentation as provided by the BERNIE above, who is the original author of this note. I agree with the documented assessment and plan, with the following changes: none Objective - Vital Signs Vital signs: Vital Signs Temp 97.9 F 03/16/23 01:47 Pulse 82 03/16/23 01:47 Resp 18 03/15/23 20:00 BP 122/82 03/16/23 01:47 Pulse Ox 95 03/16/23 01:47 FiO2 Intake & Output 03/15/23 03/16/23 03/16/23 18:59 06:59 18:59 Intake Total 540 Balance 540 Intake: Oral 540 Other: # Voids 15 5 # Bowel Movements 2 - Labs CBC & Chem 7: 03/17/23 06:18 03/17/23 06:18 Labs: Abnormal Lab Results - Last 24 Hours (Table) 03/15/23 03/15/23 Range/Units 07:36 07:36 WBC 3.47 L (4.50-10.00) X 10*3/uL Hgb 17.3 H (12.0-15.0) d/dL Hct 50.8 H (39.6-50.0) % MCV 100.2 H (80.0-97.0) FL MCH 34.1 H (27.0-32.0) pg Plt Count 122 L (140-440) X 10*3/uL BUN 4.4 L (9.0-27.0) mg/dL BUN/Creatinine Ratio 5.50 L (12.00-20.00) Ratio Glucose 140 H (70-110) mg/dL AST 88 H (14-35) U/L ALT 140 H (10-49) U/L
--- NOTE | 2023-03-16 16:11 | P.PN ---
Progress Note - Text Progress Note Date: 03/16/23 Interval History: Patient was seen today for psychiatric follow-up while on the medical floors. Nurse taking care of patient states that she has no complaints, no behavioral issues. Patient states that he is doing okay today, was cooperative during interaction. he claims that he was not able to sleep well last night, we discussed other options for night time and sleep and he was agreeable to try seroquel. also discussed need for long-acting injection to be given Friday morning. continues to be focused on d/c. appropriate. At this time patient denies any suicidal or homical ideations, intent or plan. Patient denies any current auditory, visual hallucinations and denies any paranoia or delusions. Patient denies any side effects from the medications and has been compliant with meds. Mental Status Exam: General Appearance: Patient appears to be stated age is alert, pleasant, and conference services coordinator perative. Balding, unshaven. Patient appears to have fair hygiene and grooming wearing hospital gown with improving eye contact. Behavior: Patient is calmly lying in bed without any agitated behavior. Attempts to cooperate Speech: Patient's speech is fluent and nonpressured. [place] Mood/Affect: Patient reports their mood is "ok", affect is congruent and constricted, improving mildly Suicidality/Homicidality: Patient denies having any suicidal or homicidal ideation intent or plan. Perceptions: Patient denies any visual hallucinations and denies any auditory hallucinations Though content/process: There is no evidence of any delusional thought content and thought process is linear and goal-directed. Focused on his medications. No paranoia. Memory and concentration: AOX3, grossly intact for the purposes of this session Judgment and insight: Chronically poor, improving mildly IMPRESSIONS: Schizophrenia Cannabis use disorder Nicotine dependence PLAN: -At this time patient DOES meet criteria for inpatient psychiatric admission however due to patient being positive for COVID at this time he will be seen on the medical floors by psychiatry -Would recommend the following medication changes/additions: Haldol Dec 200 mg IM, last dose given on 02/19 and next dose will be given earlier on saturday 03/17 prior to discharge. change remeron to seroquel 50 mg qhs scheduled + 50 mg qhs prn for insomnia. zyprexa prn for agitation/psychosis. cogentin bid prn for eps prophylaxis. -Continue 1:1 sitter for safety as patient is currently a mental health hold. -Cannot leave AMA at this time. Patient will need a petition and certification if attempting to leave AMA. -patient currently follows up with [facility], will need to arrange for f/u appt on friday -Communicated plan to patient's nurse -Will continue to follow along tomorrow then likely sign off. -Please contact with any questions.
[2023-03-16] MEDS ORDERED: QUEtiapine 50 MG TAB PO SCH (21:00)
[2023-03-17 02:21] VITALS: RESP 18
[2023-03-17] MEDS: NICOTINE 21MG/24HR PATCH TRANSDERM SCH (07:51)
[2023-03-17 08:14] VITALS: BP 125/71; PULSE 74; TEMP 98.2
[2023-03-17] MEDS ORDERED: HALOPERIDOL DECANOATE 100 MG/ML 1 ML VIAL IM SCH (09:00)
[2023-03-17 11:08] LABS: HCT 50.4 % (39.6-50.0); HGB 16.9 d/dL (12.0-15.0); MCH 34.6 pg (27.0-32.0); MCHC 33.5 d/dL (32.0-37.0); MCV 103.1 FL (80.0-97.0); Mean Platelet Volume 10.8 FL (9.5-12.2); NRBC Per 100 WBC 0 X 10*3/uL (0.00-0.01); Platelet Count 128 X 10*3/uL (140-440); RBC 4.89 X 10*6/uL (4.40-5.60); RDW 13.1 % (11.5-14.5); WBC 3.42 X 10*3/uL (4.50-10.00)
--- NOTE | 2023-03-17 13:15 | P.PN ---
Progress Note - Text Progress Note Date: 03/17/23 Interval History: Patient was seen today for psychiatric follow-up while on the medical floors. Nurse taking care of patient states that he has no complaints, no behavioral issues. Patient was living in that today and was agreeable to internal communications writer. He denies any problems with the medications at this time. He states that he received a Haldol D injection earlier today and tolerated it well. We spoke about outpatient follow-up and he states that he has an appointment in 2 days with [facility]. He states that he follows up with Dr. Bridges at [facility]. He claims that he slept better last night did not have any nightmares. He was agreeable to continue with Seroquel and is looking forward to go home, he denies any access to guns or weapons. States that he will call his mom to help pick him up. He was fairly cooperative and appropriate during interaction. At this time patient denies any suicidal or homical ideations, intent or plan. Patient denies any current auditory, visual hallucinations and denies any paranoia or delusions. Patient denies any side effects from the medications and has been compliant with meds. Mental Status Exam: General Appearance: Patient appears to be stated age is alert, pleasant, and cooperative. Balding, unshaven. Patient appears to have fair hygiene and grooming wearing hospital gown with improving eye contact. Behavior: Patient is calmly lying in bed without any agitated behavior. Attempts to cooperate Speech: Patient's speech is fluent and nonpressured. [place] Mood/Affect: Patient reports their mood is "fine", affect is congruent and constricted, improving mildly Suicidality/Homicidality: Patient denies having any suicidal or homicidal ideation intent or plan. Perceptions: Patient denies any visual hallucinations and denies any auditory hallucinations Though content/process: There is no evidence of any delusional thought content and thought process is linear and goal-directed. focused on discharge, No paranoia. Memory and concentration: AOX3, grossly intact for the purposes of this session Judgment and insight: Chronically poor, improving mildly IMPRESSIONS: Schizophrenia Cannabis use disorder Nicotine dependence PLAN: -At this time patient DOES NOT meet criteria for inpatient psych admission, we was treated while on the medical floors by psychiatry and will be cleared today for outpatient follow up. -Would recommend the following medication changes/additions: Haldol Dec 200 mg IM, given on today on 03/17 prior to discharge. continue with scheduled seroquel 50 mg qhs scheduled. zyprexa prn for agitation/psychosis. cogentin bid prn for eps prophylaxis. -can discontinue 1:1 sitter at this time as patient will be discharged today back home with [facility] follow up. Patient has a [facility] appointment on 03/19. -Communicated plan to patient's nurse. SW to communicate with mother today and prepare for discharge and ensure home envt is safe. -Will sign off at this time -Please contact with any questions.
[2023-03-17 14:14] LABS: ALT 123 U/L (10-49); AST 61 U/L (14-35); Albumin 3.8 d/dL (3.8-4.9); Albumin/Globulin Ratio 1.65 Ratio (1.60-3.17); Alkaline Phosphatase 73 U/L (41-126); BUN/Creat Ratio 9.57 Ratio (12.00-20.00); Blood Urea Nitrogen 6.7 mg/dL (9.0-27.0); Calcium 8.9 mg/dL (8.7-10.3); Carbon Dioxide 21.1 mmol/L (21.6-31.8); Chloride 110 mmol/L (96-109); Globulin 2.3 d/dL (1.6-3.3); Glucose 90 mg/dL (70-110); Sodium 142 mmol/L (135-145); Total Bilirubin 0.6 mg/dL (0.3-1.2); Total Protein 6.1 d/dL (6.2-8.2)
--- NOTE | 2023-03-17 14:34 | P.DS ---
Providers Date of admission: 03/13/23 20:33 Expected date of discharge: 03/17/23 Attending physician: Mariah Edgar MD Consults: 03/13/23 20:32 Consult Physician Routine Consulting Provider: Kobi Gresham Consult Reason/Comments: Acute psychosis, Covid positive Do you want consulting provider notified?: Yes Primary care physician: Stated None Hospital Course: Discharge Diagnosis: COVID infection Leukopenia Thrombocytopenia Transaminitis, likely secondary to EtOH abuse Schizophrenia Hospital Course: Patient is a 32-year-old male with a past medical history of schizophrenia who initially presented to the emergency department on 03/13/23 for mental health evaluation and inadvertently tested positive for COVID 19 infection. Patient reports feeling tired with an occasional cough but otherwise is asymptomatic at this time. Patient has been evaluated by psychiatry and is reported to meet criteria for inpatient psychiatric admission and is to remain on medical floor with sitter at bedside until quarantine is completed and patient is able to be transferred to inpatient mental health unit. The patient was monitored on medical unit and with the exception of feeling sleepy and an occasional cough was asymptomatic to Covid infection. He was evaluated by psychiatry started on Seroquel 50 mg nightly along with continuation of Haldol D 200 mg IM every 28 days. Patient has been cleared by psychiatry for discharge home at this time. Patient to follow up outpatient with psychiatrist and counselor. He was provided with community resources available to him. Patient educated on importance of preventing further spread of Covid infection and self quarantine for an additional 5 days totaling 10 days of quarantine. Patient free from any complaints at this time and denies having any hallucinations, or experiencing any suicidal or homicidal ideations. Patient is medically stable for discharge at this time. Physical exam: Vital signs reviewed and stable. General: Nontoxic, no distress and appears stated age. Derm: Skin warm and dry, normal coloration for ethnicity. Head: Atraumatic, normocephalic and symmetric. Eyes: EOMs intact, no lid lag, and anicteric sclera Mouth: no lip lesions, mucus membranes moist Cardiovascular: regular rate and rhythm with normal S1S2, no murmur, positive posterior tibial pulses bilaterally, and cap refill < 2 seconds. Lungs: Respirations even, regular, and unlabored on room air. Lungs CTA bilaterally, no rhonchi, no rales, no wheezing, and no accessory muscle usage. Abdominal: soft, nontender to palpation, no guarding, no appreciable organomegaly Ext: ROM intact. No gross muscle atrophy, no edema, no contractures Neuro: Speech clear, face symmetrical and CN II-XII grossly intact with no noted focal neuro deficits Psych: Alert and oriented to person, place, time, and situation. Appropriate and pleasant affect. A total of 31 minutes of time were spent preparing this complex discharge summary. Pt was discharged on 03/17/23 at 2:25 PM. Patient was seen independently by Nurse Practitioner. This document was prepared using [employer] dictation software. Please allow for errors in quality internship while rare they do occur. I reviewed the documentation as provided by the BERNIE above, who is the original author of this note. I agree with the documented assessment and plan, with the following changes: none Patient Condition at Discharge: Stable Plan - Discharge Summary Discharge Rx Participant: No New Discharge Prescriptions: New QUEtiapine [SEROquel] 50 mg PO HS 30 Days #30 tab Continue Haloperidol Decanoate [Haldol D] 200 mg IM Q30D Benztropine Mesylate [Cogentin] 1 mg PO BID PRN PRN Reason: medication side effects Discharge Medication List Benztropine Mesylate [Cogentin] 1 mg PO BID PRN 03/06/23 [History] Haloperidol Decanoate [Haldol D] 200 mg IM Q30D 03/06/23 [History] QUEtiapine [SEROquel] 50 mg PO HS 30 Days #30 tab 03/17/23 [Rx] Follow up Appointment(s)/Referral(s): Getachew Gonzalez MD [REFERRING] - 1 Week (Please call to make new patient appointment ) Patient Instructions/Handouts: Schizophrenia (DC), COVID-19 (Coronavirus Disease 2019) (DC), COVID-19: Slow the Coronavirus Spread (DC) Discharge/Stand Alone Forms: Who Do I Call?, Community Resources, Outpatient Counseling Discharge Disposition: HOME SELF-CARE
[2023-03-19] MEDS ORDERED: HALOPERIDOL DECANOATE 100 MG/ML 1 ML VIAL IM SCH (09:00)
== END 2023-03-17 16:17 | disposition home or self-care (01) | DRG 137 ==
LOC: EC 16:22 → 4SSUR 20:33
PROVIDERS: ADMIT Internal Medicine; ATTEND Internal Medicine
DX: U07.1 COVID-19 (principal); D69.6 Thrombocytopenia, unspecified; F12.10 Cannabis abuse, uncomplicated; F17.200 Nicotine dependence, unspecified, uncomplicated; F25.9 Schizoaffective disorder, unspecified; F31.9 Bipolar disorder, unspecified; F41.0 Panic disorder [episodic paroxysmal anxiety]; R74.01 Elevation of levels of liver transaminase levels; F10.10 Alcohol abuse, uncomplicated; I10 Essential (primary) hypertension; Z79.899 Other long term (current) drug therapy; Z82.49 Family history of ischemic heart disease and other diseases of the circulatory system
CPT/HCPCS: 80053; 80306; 82075; 83735; 85027; 87636; 99285

== ENCOUNTER → 2024-05-05 | Outpatient (CLI) | payer OTHER | END | disposition home or self-care (01) | LOC: LABPRL 13:00 | PROVIDERS: ATTEND Registered Nurse | DX: Z00.01 Encounter for general adult medical examination with abnormal findings (principal); K21.9 Gastro-esophageal reflux disease without esophagitis; E66.01 Morbid (severe) obesity due to excess calories | CPT/HCPCS: 80053; 82306; 82607; 83735; 85025 ==

== ENCOUNTER 2025-01-28 10:36 | Day surgery (SDC) | payer OTHER ==
[2025-01-27 12:37] VITALS: BMI 35.9
[2025-01-28 11:08] VITALS: RESP 16; TEMP 96.7
[2025-01-28] MEDS: IV FLUID CONTINUATION 1,000 ML IV ONE (11:11)
[2025-01-28] MEDS: LACTATED RINGERS 1,000 ML IV SCH (11:11)
[2025-01-28] MEDS ORDERED: PROPOFOL 10 MG/ML 20 ML VIAL IV ONE (12:01)
[2025-01-28] MEDS ORDERED: LIDOCAINE 1% INJ 10MG/ML (20 ML MDV) ONE (12:01)
--- NOTE | 2025-01-28 12:11 | P.PCN ---
Date of Procedure: 01/28/25 Procedure(s) Performed: BRIEF HISTORY: Patient is a 34-year-old, pleasant, white male scheduled for upper endoscopy as above evaluation of intermittent dysphagia to liquids on and off for the last several months duration. Symptoms happen once a week or so. No problem with solids.. PROCEDURE PERFORMED: Esophagogastroduodenoscopy with biopsy. PREOPERATIVE DIAGNOSIS: Intermittent dysphagia to liquids. IV sedation per anesthesia. PROCEDURE: After informed consent was obtained, the patient was brought into the endoscopy unit. IV sedation was administered by Anesthesia under continuous monitoring. Initially the Olympus GIF-140 video endoscope was inserted into the mouth. Esophagus intubated without any difficulty. It was gradually advanced into the stomach and duodenum and carefully examined. The bulb and the second part of the duodenum appeared normal. The scope at this time was withdrawn to the stomach, adequately insufflated with air, and upon careful examination, mucosa of the antrum, had linear areas of erythema consistent with gastritis and biopsies were done from this area. Mucosa of the body, cardia and the fundus appeared normal. The scope was then withdrawn into the esophagus. The GE junction was located at 41 cm from the incisors. There were linear erosions noted in the distal esophagus consistent with LA grade B reflux esophagitis. Rest of the esophagus appeared normal and the patient tolerated the procedure well. IMPRESSION: 1. Small hiatal hernia. 2. Linear erosions in the distal esophagus consistent with LA grade B reflux esophagitis 3. Mild antral gastritis. RECOMMENDATIONS: The findings of this examination were discussed with the patient as well as his family. He was advised to follow-up with the biopsy results. He will be given a trial of Prilosec 20 mg daily to be taken half hour before breakfast and follow antireflux measures.
[2025-01-28 12:33] VITALS: BP 106/63; PULSE 77
== END 2025-01-28 13:03 | disposition home or self-care (01) ==
LOC: ORWHC2ENDO 10:36
PROVIDERS: ATTEND Internal Medicine Gastroenterology
DX: K29.50 Unspecified chronic gastritis without bleeding (principal); K20.90 Esophagitis, unspecified without bleeding; K44.9 Diaphragmatic hernia without obstruction or gangrene; I10 Essential (primary) hypertension; F17.210 Nicotine dependence, cigarettes, uncomplicated; F41.9 Anxiety disorder, unspecified; F32.A Depression, unspecified; Z79.899 Other long term (current) drug therapy
CPT/HCPCS: 43239; J2003; J2704; 88305

== ENCOUNTER 2025-04-13 16:31 | Emergency (ER) | payer OTHER ==
--- NOTE | 2025-04-13 16:43 | ED ---
SOB HPI - General Chief Complaint: Shortness of Breath Stated Complaint: SOB Time Seen by Provider: 04/13/25 16:43 Source: patient, RN notes reviewed Mode of arrival: ambulatory Limitations: no limitations - History of Present Illness Initial Comments: 34-year-old male presenting for cough x 3 days with associated shortness of breath and nasal congestion. Reports the cough is dry. States he took his oxygen at home and was found to be 85 which brought him to the ER. He is a active tobacco smoker. No other significant health conditions. Tolerating orals well. - Related Data Home Medications Medication Instructions Recorded Confirmed Haldol (Unknown Dose) 1 dose IM DIRECTED 12/22/24 01/28/25 Cholecalciferol [Vitamin D3 (25 25 mcg PO DAILY 01/27/25 01/28/25 Mcg = 1000 Iu)] Previous Rx's Medication Instructions Recorded Amoxic-Pot Clav 875-125Mg 1 tab PO Q12HR 7 Days #14 tab 04/13/25 [Augmentin 875-125] Azithromycin [Zithromax Z Pack] 0 tab PO DIRECTED #6 tab 04/13/25 Allergies Allergy/AdvReac Type Severity Reaction Status Date / Time No Known Allergies Allergy Verified 04/13/25 16:40 Review of Systems ROS Statement: Those systems with pertinent positive or pertinent negative responses have been documented in the HPI. ROS Other: All systems not noted in ROS Statement are negative. Past Medical History Past Medical History: Hypertension Additional Past Medical History / Comment(s): OCCASIONAL SOB. Hernia causing stomach pain, nausea and recent weight loss of 100lbs History of Any Multi-Drug Resistant Organisms: None Reported Past Surgical History: No Surgical Hx Reported Additional Past Surgical History / Comment(s): TEETH PULLED. Past Anesthesia/Blood Transfusion Reactions: No Reported Reaction Additional Past Anesthesia/Blood Transfusion Reaction / Comment(s): HAS NOT RECEIVED ANESTHESIA. Past Psychological History: Anxiety, Depression, Panic Disorder, Schizophrenia Smoking Status: Current every day smoker Past Alcohol Use History: None Reported Past Drug Use History: Marijuana - Past Family History Mother Family Medical History: Hypertension General Exam Limitations: no limitations General appearance: alert, in no apparent distress Head exam: Present: atraumatic, normocephalic, normal inspection Eye exam: Present: normal appearance, PERRL, EOMI. Absent: scleral icterus, conjunctival injection, periorbital swelling ENT exam: Present: normal exam, normal oropharynx, mucous membranes moist Neck exam: Present: normal inspection. Absent: tenderness, meningismus, lymphadenopathy Respiratory exam: Present: normal lung sounds bilaterally. Absent: respiratory distress, wheezes, rales, rhonchi, stridor Cardiovascular Exam: Present: regular rate, normal rhythm, normal heart sounds. Absent: systolic murmur, diastolic murmur, rubs, gallop, clicks Neurological exam: Present: alert, oriented X3 Psychiatric exam: Present: normal affect, normal mood Skin exam: Present: warm, dry, intact, normal color. Absent: rash Course Vital Signs 04/13/25 04/13/25 04/13/25 16:36 18:02 18:25 Temperature 100.0 F H 99.3 F Pulse Rate 123 H 104 H Respiratory 20 Rate Blood Pressure 118/70 O2 Sat by Pulse 91 L Oximetry 04/13/25 04/13/25 18:34 18:35 Temperature 98.4 F Pulse Rate 104 H 104 H Respiratory 18 Rate Blood Pressure 122/80 O2 Sat by Pulse 95 Oximetry Medical Decision Making - Medical Decision Making Was pt. sent in by a medical professional or institution (, PA, THEATRE DIRECTOR, urgent care, hospital, or retirement...) When possible be specific @ -No Did you speak to anyone other than the patient for history (EMS, parent, family, police, friend...)? What history was obtained from this source @ -No Did you review nursing and triage notes (agree or disagree)? Why? @ -I reviewed and agree with nursing and triage notes Were old charts reviewed (outside hosp., previous admission, EMS record, old EKG, old radiological studies, urgent care reports/EKG's, retirement records)? Report findings @ -No old charts were reviewed Differential Diagnosis (chest pain, altered mental status, abdominal pain women, abdominal pain men, vaginal bleeding, weakness, fever, dyspnea, syncope, headache, dizziness, GI bleed, back pain, seizure, CVA, palpatations, mental health, musculoskeletal)? @ -Viral URI, pneumonia, bronchitis, COVID-19, influenza, RSV EKG interpreted by me (3pts min.). @ -As above X-rays interpreted by me (1pt min.). @ -Chest x-ray reveals basilar patchy airspace opacities within the right greater than the left, consistent with multifocal pneumonia CT interpreted by me (1pt min.). @ -None done U/S interpreted by me (1pt. min.). @ -None done What testing was considered but not performed or refused? (CT, X-rays, U/S, labs)? Why? @ -None What meds were considered but not given or refused? Why? @ -None Did you discuss the management of the patient with other professionals (professionals i.e. , PA, THEATRE DIRECTOR, lab, RT, psych nurse, social insurance specialist, vp treasurer, teacher, property disposal officer, correctional case manager)? Give summary @ -No Was smoking cessation discussed for >3mins.? @ -No Was critical care preformed (if so, how long)? @ -No Were there social determinants of health that impacted care today? How? (Homelessness, low income, unemployed, alcoholism, drug addiction, transportation, low edu. Level, literacy, decrease access to med. care, snf, rehab)? @ -No Was there de-escalation of care discussed even if they declined (Discuss DNR or withdrawal of care, Hospice)? DNR status @ -No What co-morbidities impacted this encounter? (DM, HTN, Smoking, COPD, CAD, Cancer, CVA, ARF, Chemo, Hep., AIDS, mental health diagnosis, sleep apnea, morbid obesity)? @ -None Was patient admitted / discharged? Hospital course, mention meds given and route, prescriptions, significant lab abnormalities, going to OR and other pertinent info. @ - discharge. 34-year-old male presenting for cough x 3 days with associated shortness of breath. Patient is febrile at 100 F, tachycardic at 123 bpm, satting 91% on room air. Patient is overall well-appearing, no acute respiratory distress. Provided with Tylenol, IV fluids, DuoNeb breathing treatment, and Solu-Medrol. Lab work remarkable for leukocytosis of 18 with left shift. Chest x-ray reveals basilar patchy airspace opacities within the right greater than the left, consistent with multifocal pneumonia. Upon reevaluation, fever resolves, heart rate decreases to 104 beats per minutes, satting 95% on room air. Patient's breathing remains nonlabored. Patient is a current smoker otherwise no other significant risk factors. Patient can be discharged with outpatient course of antibiotics and strict return parameters/close follow-up care. Supportive care discussed. Patient and family are agreeable to plan. Case was discussed with my ED attending Dr. Bruce. Undiagnosed new problem with uncertain prognosis? @ -No Drug Therapy requiring intensive monitoring for toxicity (Heparin, Nitro, Insulin, Cardizem)? @ -No Were any procedures done? @ -No Diagnosis/symptom? @ -Bacterial pneumonia Acute, or Chronic, or Acute on Chronic? @ -Acute Uncomplicated (without systemic symptoms) or Complicated (systemic symptoms)? @ -Uncomplicated Side effects of treatment? @ -No Exacerbation, Progression, or Severe Exacerbation? @ -No Poses a threat to life or bodily function? How? (Chest pain, [place], [place], pneumonia, PE, COPD, DKA, ARF, appy, cholecystitis, CVA, Diverticulitis, Homicidal, Suicidal, threat to staff... and all critical care pts) @ -Unlikely at this time - Lab Data Result diagrams: 04/13/25 17:05 04/13/25 17:05 Lab Results 04/13/25 04/13/25 04/13/25 Range/Units 17:05 17:05 17:05 WBC 18.53 H (4.50-10.00) 10*3/uL RBC 4.45 (4.40-5.60) 10*6/uL Hgb 14.8 (13.0-17.0) g/dL Hct 40.2 (39.6-50.0) % MCV 90.3 (80.0-97.0) fL MCH 33.3 H (27.0-32.0) pg MCHC 36.8 (32.0-37.0) g/dL Plt Count 306 (140-440) 10*3/uL MPV 9.4 L (9.5-12.2) fL Immature Gran % (Auto) 0.5 % Neutrophils % 86.3 % Lymphocytes % 8.8 % Monocytes % 4.0 % Eosinophils % 0.2 % Basophils % 0.2 % Immature Gran # 0.10 H (0.00-0.04) 10*3/uL Neutrophils # 15.97 H (1.80-7.70) 10*3/uL Lymphocytes # 1.63 (0.90-5.00) 10*3/uL Monocytes # 0.75 (0.20-1.00) 10*3/uL Eosinophils # 0.04 (0.04-0.35) 10*3/uL Basophils # 0.04 (0.00-0.10) 10*3/uL Sodium 132 L (137-145) mmol/L Potassium 3.4 L (3.5-5.1) mmol/L Chloride 90 L (98-107) mmol/L Carbon Dioxide 31 H (22-30) mmol/L Anion Gap 11 mmol/L BUN 5 L (9-20) mg/dL Creatinine 0.58 L (0.66-1.25) mg/dL Est GFR (CKD-EPI)AfAm >90 (>60 ml/min/1.73 sqM) Est GFR (CKD-EPI)NonAf >90 (>60 ml/min/1.73 sqM) Glucose 124 H (74-99) mg/dL Calcium 9.2 (8.4-10.2) mg/dL Total Bilirubin 1.3 (0.2-1.3) mg/dL AST 63 H (17-59) U/L ALT 31 (4-49) U/L Alkaline Phosphatase 118 (38-126) U/L Total Protein 6.6 (6.3-8.2) g/dL Albumin 3.7 (3.5-5.0) g/dL Influenza Type A (PCR) Not Detected (Not Detectd) Influenza Type B (PCR) Not Detected (Not Detectd) RSV (PCR) Not Detected (Not Detectd) SARS-CoV-2 (PCR) Not Detected (Not Detectd) - EKG Data -: EKG Interpreted by Me EKG Comments: EKG reveals sinus tachycardia with no acute ST changes. Ventricular rate 117 bpm, parable 113, QRS duration 105, QT/QTc 323/393 Disposition Clinical Impression: Pneumonia Disposition: HOME SELF-CARE Condition: Stable Instructions (If sedation given, give patient instructions): Bacterial Pneumonia (ED) Additional Instructions: Take Augmentin and azithromycin as prescribed. Alternate Tylenol and ibuprofen as needed for fever. Follow-up with your doctor in 3 to 5 days for reevaluation. Please return to the Emergency Department if symptoms worsen or any other concerns. Prescriptions: Amoxic-Pot Clav 875-125Mg [Augmentin 875-125] 1 tab PO Q12HR 7 Days #14 tab Azithromycin [Zithromax Z Pack] 0 tab PO DIRECTED #6 tab Is patient prescribed a controlled substance at d/c from ED?: No Referrals: None,Stated [REFERRING] - 1-2 days Forms: Area PCPs Time of Disposition: 19:21
[2025-04-13] MEDS: IBUPROFEN 800 MG TAB PO STA (17:09)
[2025-04-13] MEDS: methylPREDNISolone SOD SUCCI 125 MG/2 ML VIAL IV STA (17:13)
[2025-04-13] MEDS: SODIUM CHLORIDE 0.9% 1,000 ML IV STA (17:13)
[2025-04-13] MEDS: ACETAMINOPHEN TAB 500 MG TAB PO STA (17:14)
[2025-04-13 17:16] LABS: Basophils # (A) 0.04 10*3/uL (0.00-0.10); Basophils % (A) 0.2 %; Eosinophils # (A) 0.04 10*3/uL (0.04-0.35); Eosinophils % (A) 0.2 %; HCT 40.2 % (39.6-50.0); HGB 14.8 g/dL (13.0-17.0); Lymphocytes # (A) 1.63 10*3/uL (0.90-5.00); Lymphocytes % (A) 8.8 %; MCH 33.3 pg (27.0-32.0); MCHC 36.8 g/dL (32.0-37.0); MCV 90.3 fL (80.0-97.0); Monocytes # (A) 0.75 10*3/uL (0.20-1.00); Monocytes % (A) 4.0 %; Neutrophils # (A) 15.97 10*3/uL (1.80-7.70); Neutrophils % (A) 86.3 %; Platelet Count 306 10*3/uL (140-440); RBC 4.45 10*6/uL (4.40-5.60); RDW 11.5 % (11.5-14.5); WBC 18.53 10*3/uL (4.50-10.00)
--- NOTE | 2025-04-13 17:19 | XR ---
EXAMINATION TYPE: XR chest 2V DATE OF EXAM: 04/13/2025 5:14 PM COMPARISON: Chest radiographs from 03/06/2023 TECHNIQUE: XR chest 2V Frontal and lateral views of the chest. CLINICAL INDICATION:Male, 34 years old with history of shortness of breath, cough; FINDINGS: Lungs/Pleura: No pleural effusion or pneumothorax. Bibasilar patchy airspace opacities with right gre ater than left. Pulmonary vascularity: Unremarkable. Heart/mediastinum: Cardiomediastinal silhouette is unremarkable. Musculoskeletal: No acute osseous pathology. IMPRESSION: Bibasilar patchy airspace opacities with right greater than left. Findings suggest multifocal pneumon ia. [facility], , 04/13/2025 5:17 PM
[2025-04-13 17:35] LABS: ALT 31 U/L (4-49); AST 63 U/L (17-59); African American GFR (CKD) >90 (>60 ml/min/1.73 sqM); Albumin 3.7 g/dL (3.5-5.0); Alkaline Phosphatase 118 U/L (38-126); Anion Gap 11 mmol/L; Blood Urea Nitrogen 5 mg/dL (9-20); Calcium 9.2 mg/dL (8.4-10.2); Carbon Dioxide 31 mmol/L (22-30); Chloride 90 mmol/L (98-107); Glucose 124 mg/dL (74-99); Non-African American GFR(CKD) >90 (>60 ml/min/1.73 sqM); Potassium 3.4 mmol/L (3.5-5.1); Sodium 132 mmol/L (137-145); Total Protein 6.6 g/dL (6.3-8.2)
[2025-04-13 18:03] LABS: RSV Not Detected (Not Detectd)
[2025-04-13] MEDS: IPRATROPIUM-ALBUTEROL 3 ML NEB INHALATION STA (18:25)
[2025-04-13 18:36] VITALS: BP 122/80; RESP 18
[2025-04-13] MEDS: AZITHROMYCIN 500 MG TAB PO STA (19:36)
[2025-04-13] MEDS: AMOXIC-POT CLAV 875-125MG 1 EACH TAB PO STA (19:38)
[2025-04-13 19:40] VITALS: PULSE 118; TEMP 98.3
== END 2025-04-13 19:40 | disposition home or self-care (01) ==
LOC: EC 16:31
DX: J15.9 Unspecified bacterial pneumonia (principal); F17.200 Nicotine dependence, unspecified, uncomplicated
CPT/HCPCS: 36415; 94640; 93005; 80053; 85025; 87636; 71046; 99285; 96374; 96361; J2919